=== PATIENT | male | born 1945 | race Caucasian/White ===

== ENCOUNTER → 2017-02-13 | Outpatient (CLI) | payer OTHER ==
[2017-02-13 16:58] LABS: HEMATOCRIT 40.6 % (42-52); MEAN CELL VOLUME 93.1 fL (80-100); MEAN CORPUSCULAR HGB CONC 35.5 g/dl (32-36); MEAN PLATELET VOLUME 9.9 fL (7.4-10.4); PLATELET COUNT 205 K/uL (130-400); RED BLOOD COUNT 4.36 M/uL (4.7-6.1); WHITE BLOOD COUNT 18.27 K/uL (4.8-10.8)
[2017-02-13 17:09] LABS: ALT/SGPT 25 U/L (12-78); AST/SGOT 23 U/L (15-37); BLOOD UREA NITROGEN 8 mg/dl (7-18); CALCIUM 9.5 mg/dl (8.5-10.1); CARBON DIOXIDE 31 mmol/L (21-32); CHLORIDE 105 mmol/L (98-107); GLUCOSE 99 mg/dl (70-99); POTASSIUM 3.9 mmol/L (3.5-5.1); SODIUM 141 mmol/L (136-145)
[2017-02-13 17:12] LABS: ALB/GLOB RATIO 0.9 (0.9-2); ALKALINE PHOSPHATASE 80 U/L (45-117)
[2017-02-13 17:41] LABS: EOSINOPHIL % 0.9 %; LYMPH ABS # 2.96 K/uL (1.2-3.4); LYMPHOCYTE % 16.2 %; NEUTROPHILS % 34.2 %; SMUDGE CELLS PRESENT; VARIANT LYM ABS # 8.24 K/uL; VARIANT LYMPHOCYTE % 45.1 %
[2017-02-13 18:10] LABS: COMPLETE YES
== END | disposition home or self-care (01) ==
LOC: C.LABBC 13:30
PROVIDERS: ATTEND Internal Medicine Hematology & Oncology
DX: C91.90 Lymphoid leukemia, unspecified not having achieved remission (principal)

== ENCOUNTER → 2017-08-24 | Outpatient (CLI) | payer OTHER ==
[2017-08-24 17:13] LABS: HEMATOCRIT 43.9 % (42-52); MEAN CELL VOLUME 94.4 fL (80-100); MEAN CORPUSCULAR HEMOGLOBIN 32.7 pg (25-34); MEAN CORPUSCULAR HGB CONC 34.6 g/dl (32-36); MEAN PLATELET VOLUME 10.4 fL (7.4-10.4); PLATELET COUNT 255 K/uL (130-400); RED BLOOD COUNT 4.65 M/uL (4.7-6.1)
[2017-08-24 17:22] LABS: ALT/SGPT 25 U/L (12-78); AST/SGOT 20 U/L (15-37); BLOOD UREA NITROGEN 11 mg/dl (7-18); BUN/CREATININE RATIO 13.5 (10-20); CALCIUM 9.7 mg/dl (8.5-10.1); CARBON DIOXIDE 29 mmol/L (21-32); CHLORIDE 106 mmol/L (98-107); GLUCOSE 119 mg/dl (70-99); POTASSIUM 4.1 mmol/L (3.5-5.1); SODIUM 141 mmol/L (136-145)
[2017-08-24 17:24] LABS: ALB/GLOB RATIO 0.9 (0.9-2); ALKALINE PHOSPHATASE 84 U/L (45-117); CHOLESTEROL 173 mg/dl (0-200); HDL CHOLESTEROL 58 mg/dl; LDL CHOLESTEROL CALCULATED 77 mg/dl; TRIGLYCERIDES 190 mg/dl (0-150); VERY LOW DENSITY LIPOPROT CALC 38 mg/dl
[2017-08-24 20:07] LABS: BASO % 0.3 %; BASO ABS # 0.05 K/uL (0-0.2); COMPLETE YES; EOS % 1.2 %; IG% 0.2 %; LYMPH % 65.8 %; LYMPH ABS # 11.38 K/uL (1.2-3.4); MONO % 4.2 %; NEUT % 28.3 %; SMUDGE CELLS PRESENT
[2017-08-26 16:25] LABS: ALBUMIN 4.1 G/DL (3.8-4.8); FREE KAPPA/LAMBDA RATIO 1.12 (0.26-1.65); FREE LAMBDA 14.3 MG/L (5.7-26.3); GAMMA GLOBULIN 1.2 G/DL (0.8-1.7); MONOCLONAL PROTEIN BAND 1 0.9 G/DL (NOT DETECTED); TOTAL PROTEIN 6.9 G/DL (6.2-8.3)
== END | disposition home or self-care (01) ==
LOC: C.LABBC 13:22
PROVIDERS: ATTEND Internal Medicine Hematology & Oncology
DX: C91.10 Chronic lymphocytic leukemia of B-cell type not having achieved remission (principal); D47.2 Monoclonal gammopathy; I70.0 Atherosclerosis of aorta; J44.9 Chronic obstructive pulmonary disease, unspecified

== ENCOUNTER → 2018-02-23 | Outpatient (CLI) | payer OTHER ==
[2018-02-23 13:23] LABS: HEMATOCRIT 42.8 % (42-52); HEMOGLOBIN 15.1 g/dL (14.0-18.0); MEAN CELL VOLUME 93.7 fL (80-100); MEAN CORPUSCULAR HGB CONC 35.3 g/dl (32-36); MEAN PLATELET VOLUME 9.8 fL (7.4-10.4); PLATELET COUNT 224 K/uL (130-400); RED CELL DISTRIBUTION WIDTH CV 13.5 % (11.5-14.5); WHITE BLOOD COUNT 18.52 K/uL (4.8-10.8)
[2018-02-23 14:31] LABS: BASO % 0.2 %; BASO ABS # 0.03 K/uL (0-0.2); EOS % 1.1 %; EOS ABS # 0.21 K/uL (0-0.5); IG# 0.03 K/uL (0.00-0.02); LYMPH % 60.2 %; LYMPH ABS # 11.15 K/uL (1.2-3.4); MONO % 3.6 %; MONO ABS # 0.67 K/uL (0.11-0.59); NEUT % 34.7 %; NEUT ABS # 6.43 K/uL (1.4-6.5)
[2018-02-23 17:15] LABS: ALBUMIN 3.8 gm/dl (3.4-5.0); ALT/SGPT 20 U/L (12-78); AST/SGOT 21 U/L (15-37); BLOOD UREA NITROGEN 10 mg/dl (7-18); CALCIUM 9.8 mg/dl (8.5-10.1); CARBON DIOXIDE 27 mmol/L (21-32); CREATININE 0.92 mg/dl (0.60-1.40); GLUCOSE 89 mg/dl (70-99); SODIUM 136 mmol/L (136-145)
[2018-02-23 17:17] LABS: ALKALINE PHOSPHATASE 83 U/L (45-117); TOTAL PROTEIN 7.8 gm/dl (6.4-8.2)
== END | disposition home or self-care (01) ==
LOC: C.LABBC 12:18
PROVIDERS: ATTEND Internal Medicine Hematology & Oncology
DX: C91.10 Chronic lymphocytic leukemia of B-cell type not having achieved remission (principal)

== ENCOUNTER 2022-05-22 17:11 | Observation (INO) ==
--- NOTE | 2022-05-22 17:56 | Emergency Department Note ---
Impression & Plan Pulmonary embolism, CLL (chronic lymphocytic leukemia), Chest pain, Pneumonia ED Provider Note NAME: EDOUARD HUMMEL AGE: 76 SEX: M : 1945 ARRIVES VIA: Walk-In INFORMANT: Patient ED PROVIDER(S): Cory Eisenberg DO CHIEF COMPLAINT: Pleuritic chest pain HPI: Patient is a 76-year-old gentleman with a past medical history of hypertension, CLL, COPD and prostate cancer that presents to the ER for pleuritic chest pain which started in the past 24 hours. He notes it is only present when he takes a deep breath. Located over the left chest wall. Admits to maybe a slight change in his cough over the past week. Denies any fevers. No shortness of breath. No belly pain. No nausea or vomiting. He does have some intermittent diarrhea which is unchanged. No dysuria urgency or frequency. No other exacerbating or remitting factors. ROS: See above HPI for pertinent positives & negatives. A total of 10 systems reviewed and were otherwise negative. PAST MEDICAL HISTORY:See Below PAST SURGICAL HISTORY:See Below FAMILY HISTORY:See Below SOCIAL HISTORY:See Below HOME MEDICATIONS:See Below ALLERGIES:See Below VITALS:See Below PHYSICAL EXAMINATION: GENERAL: Sitting up in bed, alert, well appearing, well nourished, no distress, non-toxic EYE EXAM: normal conjunctiva. OROPHARYNX: no exudate, no erythema, lips, buccal mucosa, and tongue normal and mucous membranes are moist NECK: supple, no nuchal rigidity, no adenopathy, non-tender LUNGS: Clear to auscultation. Normal chest wall mechanics HEART: no murmurs, S1 normal and S2 normal ABDOMEN: abdomen soft, non-tender, normo-active bowel sounds, no masses, no rebound or guarding. UPPER EXTREMITIES: upper extremities are grossly normal. LOWER EXTREMITIES: No pitting edema. NEURO EXAM: Normal sensorium, cranial nerves II-XII grossly intact, normal speech, no gross weakness of arms, no gross weakness of legs. MEDICAL DECISION MAKING: Patient is a 76-year-old male who presents ER for chest pain and shortness of breath. IV was established blood work was obtained. Labs show leukocytosis 21,000 consistent with CLL. No anemia. BMP with mild hyponatremia 134. LFTs and bilirubin were unremarkable. Troponin was negative. COVID-negative. EKG did show some nonspecific ST wave changes in the lateral leads. CT of the chest shows PE is with infectious inflammatory findings as well. PE was segmental and subsegmental. Patient was updated in regards to findings. Discussed bleeding risk factors and declined all risk factors. Patient was given heparin drip and bolus. Patient was given azithromycin and Rocephin. Discussed with the hospitalist admitted for further work-up. Triage Nursing notes reviewed. Limited review of prior medical records performed Vital Signs: reviewed and remarkable for HTN Differential diagnosis: Differential diagnoses includes but is not limited to acute coronary syndrome, myocardial infarction, pericarditis, pulmonary embolus, aortic dissection, pneumonia, pneumothorax, musculoskeletal, shingles, esophageal. ER treatment provided: See below Diagnostics interpreted by me: ECG: Sinus rhythm rate 80 Normal axis No PVCs Nonspecific ST wave changes in the lateral leads QTC [address] wave changes in the lateral leads are new in comparison to 2009 Cardiac Monitoring: An order was placed for continuous cardiac monitoring. The monitor shows a rate of 82 with sinus rhythm. Laboratory studies: As stated above and show below. Imaging studies: CT angio as described above Consultation(s): Discussed with Williams Alaniz for further evaluation Procedures: none Critical Care: I have personally spent 32 minutes of critical care time in the direct management of this patient. This includes bedside care, interpretation of diagnostic studies, and testing, discussion with consultants, patient, and family members, and other required patient management activities. This 32 minutes is in excess of all separately billable procedures. Past Med/Surg History Medical History (Updated 05/22/22 @ 22:16 by Cory Eisenberg DO) Actinic keratosis Aortic atherosclerosis Chronic obstructive pulmonary disease CLL (chronic lymphocytic leukemia) (~2007) No treatment required Coronary artery disease Hematuria, gross History of bleeding ulcers History of colon polyps Monoclonal gammopathy Pneumothorax Skin cancer Nonmelanoma;End of nose Surgical History (Updated 04/18/22 @ 08:38 by Xavier Pimentel DO) History of colonoscopy 12/2018 Repeat 5 yrs History of esophagogastroduodenoscopy (EGD) History of strabismus surgery left History of tonsillectomy History of tooth extraction most teeth Family History Sister Breast cancer Brother Prostate cancer CLL (chronic lymphocytic leukemia) Mother , 102yo Natural with unknown cause Father , 60yo Stomach cancer Brother Bone cancer Brother No problems noted. Brother No problems noted. Brother No problems noted. Sister No problems noted. Daughter No problems noted. Daughter No problems noted. Son No problems noted. 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 Beliefs That Will Affect Care: None marital status: Current Living Situation: Spouse and Family Current Living Situation Comment: lives with and 2 grandkids current occupational status: retired current occupation: Retired from [employer];Works parttime at [employer] How many Children do You have: 2 Feels Safe at Home: Yes Childhood Exposure to Second-Hand Smoke: Yes caffeine: Yes (3 cups/day) during the past year weight has: remained stable Dental Care, Regularly: Yes Physical Activity Frequency: Daily Seatbelt Use: always Sunscreen Use: Yes Assistive Devices: Denture - Upper, Denture - Lower and Glasses Allergies Allergies Allergy/AdvReac Type Severity Reaction Status Date / Time No Known Allergies Allergy Verified 05/22/22 18:02 Home Meds Previous Rx's Medication Instructions Recorded losartan 25 mg tablet 25 mg PO DAILY #90 tabs 04/18/22 Results & Data (ED) Vital Signs Vital Signs - 24 hr 05/22/22 17:21 05/22/22 18:12 05/22/22 19:12 Temperature 37.7 C H Temperature Source Oral Pulse Rate 79 65 Pulse Rhythm Regular Regular Pulse Strength Normal Respiratory Rate 18 24 Respiratory Effort / Characteristics Non-Labored Spontaneous Respiratory Depth Normal Respiratory Pattern Regular Blood Pressure 150/67 H Blood Pressure Mean 94 Blood Pressure Position Sitting Pulse Oximetry 95 97 96 Oxygen Delivery Method Room Air Room Air Room Air Sepsis Recent Fever Within 48 Hours No Sepsis New/Unexplained Change in Mental Status No Sepsis Action Taken by Nursing No Action Required Laboratory Data Result diagrams: 05/22/22 17:41 05/22/22 17:41 Lab Results 05/22/22 05/22/22 05/22/22 Range/Units 17:41 17:41 17:41 WBC 21.40 H (4.8-10.8) K/ul RBC 4.51 L (4.63-6.08) M/uL Hgb 14.7 (14.0-18.0) g/dl Hct 42.7 (40.1-51.0) % MCV 94.7 (80.0-100.0) fL MCH 32.6 (25.0-34.0) pg MCHC 34.4 (32.0-36.0) g/dL RDW Std Deviation 43.8 (36.4-46.3) fL RDW Coeff of Keyla 12.7 (11.5-14.5) % Plt Count 184 (130-400) K/uL MPV 9.9 (9.4-12.4) fL Immature Gran % (Auto) 0.4 % Neut % (Auto) 57.3 % Lymph % (Auto) 35.6 % [place] % (Auto) 5.8 % Eos % (Auto) 0.7 % Baso % (Auto) 0.2 % Neut # (Auto) 12.28 H (1.4-6.5) K/uL Lymph # (Auto) 7.61 H (1.2-3.4) K/uL [place] # (Auto) 1.25 H (0.24-0.82) K/uL Eos # (Auto) 0.14 (0-0.50) K/uL Baso # (Auto) 0.04 (0-0.2) K/uL Immature Gran # (Auto) 0.08 H (0.00-0.02) K/uL Smudge Cells Present PT 11.0 (9.0-12.0) Seconds INR 1.0 (0.9-1.1) Sodium 134 L (136-145) mmol/L Potassium 4.1 (3.5-5.1) mmol/L Chloride 103 (98-107) mmol/L Carbon Dioxide 27 (21-32) mmol/L Anion Gap 4 (3-11) BUN 10 (6-23) mg/dl Creatinine 0.92 (0.6-1.4) mg/dl Est Cr Clr Drug Dosing 68.0 ml/min Est GFR ( Amer) 92.0 ml/min Est GFR (Non-Af Amer) 79.4 ml/min BUN/Creatinine Ratio 10.9 (10-20) Glucose 117 H (70-99(Fasting)) mg/dl Calcium 9.6 (8.5-10.1) mg/dl Total Bilirubin 1.1 H (0.2-1.0) mg/dl AST 15 (13-39) U/L ALT 9 (7-52) U/L Alkaline Phosphatase 78 (34-104) U/L Troponin I High Sens 8.8 (0-20) pg/ml Total Protein 7.4 (6.0-8.3) gm/dl Albumin 4.0 (3.4-5.0) gm/dl Globulin 3.4 (2.5-4.0) gm/dl Albumin/Globulin Ratio 1.2 (0.9-2) Lipase 14 (11-82) U/L Administered Medications Heparin Sodium/Dextrose (Heparin Sodium/Dextrose) 25,000 units in 500 mls @ 26 mls/hr IV .[id number]; Protocol Stop: 06/21/22 19:44 Last Admin: 05/22/22 20:21 Dose: 1,300 units/hr, 26 mls/hr Documented By: GAMALIEL Co-signed By: AM Discontinued Medications Heparin Sodium (Porcine) (Heparin Sod (Porcine) 1000 Unit/Ml) 1 units IV NOW ONE Stop: 05/22/22 19:45 Last Admin: 05/22/22 20:21 Dose: 5,000 units Documented By: GAMALIEL Co-signed By: AM Ceftriaxone Sodium (Rocephin) 2,000 mg in 70 mls @ 140 mls/hr IV NOW STA Stop: 05/22/22 19:55 Last Infusion: 05/22/22 20:50 Dose: 0 mls/hr Documented By: Admin: 05/22/22 20:20 Dose: 140 mls/hr Documented By: GAMALIEL Azithromycin 500 mg/ Dextrose 255 mls @ 125 mls/hr IV NOW STA Stop: 05/22/22 21:28 Last Admin: 05/22/22 21:30 Dose: 125 mls/hr Documented By: GAMALIEL Ioversol (Optiray 320 125ml) 119 ml IV ONCE ONE Stop: 05/22/22 19:05 Last Admin: 05/22/22 19:04 Dose: 119 ml Documented By: [facility] Imaging Data Radiologist's Impression: Chest CTA 05/22/22 17:49 CT ANGIOGRAM OF THE CHEST CLINICAL HISTORY: Dyspnea. Left-sided chest pain. COMPARISON STUDY: Chest x-ray dated 05/22/2022. Chest CT dated 09/18/2021. TECHNIQUE: Following the IV administration of 119 cc of Optiray 320, CT angiogram of the chest was performed from the upper abdomen to the thoracic inlet utilizing the pulmonary embolus protocol. Images are reviewed in the axial, sagittal, and coronal planes. 3-D MIPS images are created and assessed. IV contrast was administered without complication. A dose lowering technique was utilized adhering to the principles of ALARA. CT DOSE: 460.29 mGy.cm FINDINGS: Thyroid: Atrophic. Thoracic aorta: There is atherosclerotic calcification of the thoracic aorta, which is normal in caliber and demonstrates standard 3-vessel arch anatomy. No dissection is seen. Pulmonary vasculature: The pulmonary trunk is normal in caliber. Segmental and subsegmental pulmonary emboli are seen within branches of the right upper and right middle lobe pulmonary arteries. There is also likely segmental pulmonary embolus within the lingular pulmonary artery. The central pulmonary vessels are clear. Heart: The heart is normal in size and without pericardial effusion. The coronary arteries are densely calcified. Lungs and pleural spaces: There is moderate emphysema. Minimal secretions are noted in the trachea. Parenchymal scarring and fibrosis with mucous plugging is noted in the right middle lobe and lingula. There is patchy groundglass con solidation within the left lower lobe seen on image #190. No pleural effusion is identified. Foci of parenchymal scarring are seen throughout both lungs. Apical scarring is noted. A formal metered pleural-based nodule at the right lung base on image #80 is unchanged. There are scattered calcified granulomas. Foci of mucus plugging are seen throughout both lungs. Mediastinum: There is no mediastinal lymphadenopathy. Evelyn: Clear. Axillae: There is no axillary lymphadenopathy. Upper abdomen: A 2.7 cm cyst is again seen in the dome of liver. A 4.5 cm cyst is again seen in the upper pole of the right kidney. Skeletal structures: The skeletal structures are osteopenic. Spondylotic change is noted throughout the thoracic spine. A large calcified posterior disc osteop hyte complex at T6-T7 contributes to moderate to severe central canal stenosis. No lytic or blastic bony lesions are seen. IMPRESSION: 1. There are segmental and subsegmental pulmonary emboli within branches of the right upper and right middle lobe pulmonary arteries. There is also likely segmental pulmonary embolus within the lingular pulmonary artery. 2. Emphysema. 3. Minimal patchy consolidation in the left lower lobe is typical for an infectious/inflammatory pneumonitis. A follow-up chest CT in 3-4 months time is recommended to document resolution. 4. Findings in the right middle lobe and lingula suggest a chronic infectious/inflammatory pneumonitis, and there are foci of mucus plugging throughout both lungs. 5. Additional findings as above. ACT 112: Positive. There are findings on this exam that require communication between the performing entity and the patient following Patient Test Result Information Act ([place] Act 112) guidelines. Electronically signed by: Luis Brandon M.D. 05/22/2022 7:21 PM Chest X-Ray 05/22/22 17:49 SINGLE VIEW CHEST CLINICAL HISTORY: Atypical chest pain. FINDINGS: 2 AP, portable, upright chest radiographs are compared to study dated 02/08/2015. Correlation is made with chest CT dated 09/18/2021. The heart is enlarged noting atherosclerotic calcification of the thoracic aorta. The pulmonary vasculature is noncongested. Emphysema and chronic interstitial t hickening is similar to previous. Foci of parenchymal scarring are seen throughout both lungs. No airspace consolidation or large pleural effusion is identified. No pneumothorax is seen. The skeletal structures are osteopenic. The bony thorax is grossly intact. IMPRESSION: Cardiomegaly and emphysema with no acute cardiopulmonary abnormality. ACT 112: Negative or not required by law. Electronically signed by: Luis Brandon M.D. 05/22/2022 6:47 PM Discharge Plan Visit Data Chief Complaint: Cardiac Assessment Stated Complaint: CHEST PAIN, SHARP PAIN ED Provider: Cory Eisenberg Discharge Problem: Pulmonary embolism, CLL (chronic lymphocytic leukemia), Chest pain, Pneumonia
[2022-05-22 17:58] LABS: Hematocrit (blood only) 42.7 % (40.1-51.0); Hemoglobin 14.7 g/dl (14.0-18.0); Mean Corpuscular Hemoglobin 32.6 pg (25.0-34.0); Mean Corpuscular Hgb Conc 34.4 g/dL (32.0-36.0); Mean Corpuscular Volume 94.7 fL (80.0-100.0); Mean Platelet Volume 9.9 fL (9.4-12.4); Platelet Count 184 K/uL (130-400); RDW Coefficient of Variation 12.7 % (11.5-14.5); RDW Standard Deviation 43.8 fL (36.4-46.3); Red Blood Count 4.51 M/uL (4.63-6.08)
[2022-05-22 18:17] LABS: Albumin Globulin Ratio 1.2 (0.9-2); BUN Creatinine Ratio 10.9 (10-20); Bilirubin,Total 1.1 mg/dl (0.2-1.0); Calcium 9.6 mg/dl (8.5-10.1); Est GFR (Non-African American) 79.4 ml/min; Globulin 3.4 gm/dl (2.5-4.0); Potassium 4.1 mmol/L (3.5-5.1); Total Protein 7.4 gm/dl (6.0-8.3)
[2022-05-22 18:23] LABS: Troponin I High Sensitivity 8.8 pg/ml (0-20)
--- NOTE | 2022-05-22 18:48 | XRay Report ---
SINGLE VIEW CHEST CLINICAL HISTORY: Atypical chest pain. FINDINGS: 2 AP, portable, upright chest radiographs are compared to study dated 02/08/2015. Correlation is made with chest CT dated 09/18/2021. The heart is enlarged noting atherosclerotic calcification o f the thoracic aorta. The pulmonary vasculature is noncongested. Emphysema and chronic interstitial t hickening is similar to previous. Foci of parenchymal scarring are seen throughout both lungs. No air space consolidation or large pleural effusion is identified. No pneumothorax is seen. The skeletal st ructures are osteopenic. The bony thorax is grossly intact. IMPRESSION: Cardiomegaly and emphysema with no acute cardiopulmonary abnormality. ACT 112: Negative or not required by law. Electronically signed by: Luis Brandon M.D. 05/22/2022 6:47 PM
[2022-05-22 18:55] LABS: Smudge Cells Present
[2022-05-22] MEDS ORDERED: OPTIRAY 320 125ml IV ONE (19:04)
[2022-05-22 19:08] LABS: Basophils # (auto) 0.04 K/uL (0-0.2); Basophils % (auto) 0.2 %; Eosinophils # (auto) 0.14 K/uL (0-0.50); Eosinophils % (auto) 0.7 %; Immature Granulocytes # (auto) 0.08 K/uL (0.00-0.02); Immature Granulocytes % (auto) 0.4 %; Lymphocytes # (auto) 7.61 K/uL (1.2-3.4); Lymphocytes % (auto) 35.6 %; Monocytes # (auto) 1.25 K/uL (0.24-0.82); Monocytes % (auto) 5.8 %; Neutrophils # (auto) 12.28 K/uL (1.4-6.5); Neutrophils % (auto) 57.3 %
--- NOTE | 2022-05-22 19:22 | CT Scan Report ---
CT ANGIOGRAM OF THE CHEST CLINICAL HISTORY: Dyspnea. Left-sided chest pain. COMPARISON STUDY: Chest x-ray dated 05/22/2022. Chest CT dated 09/18/2021. TECHNIQUE: Following the IV administration of 119 cc of Optiray 320, CT angiogram of the chest was pe rformed from the upper abdomen to the thoracic inlet utilizing the pulmonary embolus protocol. Images are reviewed in the axial, sagittal, and coronal planes. 3-D MIPS images are created and assessed. I V contrast was administered without complication. A dose lowering technique was utilized adhering to the principles of ALARA. CT DOSE: 460.29 mGy.cm FINDINGS: Thyroid: Atrophic. Thoracic aorta: There is atherosclerotic calcification of the thoracic aorta, which is normal in sharlene ibeth and demonstrates standard 3-vessel arch anatomy. No dissection is seen. Pulmonary vasculature: The pulmonary trunk is normal in caliber. Segmental and subsegmental pulmonary emboli are seen within branches of the right upper and right middle lobe pulmonary arteries. There i s also likely segmental pulmonary embolus within the lingular pulmonary artery. The central pulmonary vessels are clear. Heart: The heart is normal in size and without pericardial effusion. The coronary arteries are densel y calcified. Lungs and pleural spaces: There is moderate emphysema. Minimal secretions are noted in the trachea. P arenchymal scarring and fibrosis with mucous plugging is noted in the right middle lobe and lingula. There is patchy groundglass consolidation within the left lower lobe seen on image #190. No pleural e ffusion is identified. Foci of parenchymal scarring are seen throughout both lungs. Apical scarring i s noted. A formal metered pleural-based nodule at the right lung base on image #80 is unchanged. Ther e are scattered calcified granulomas. Foci of mucus plugging are seen throughout both lungs. Mediastinum: There is no mediastinal lymphadenopathy. Evelyn: Clear. Axillae: There is no axillary lymphadenopathy. Upper abdomen: A 2.7 cm cyst is again seen in the dome of liver. A 4.5 cm cyst is again seen in the u pper pole of the right kidney. Skeletal structures: The skeletal structures are osteopenic. Spondylotic change is noted throughout t he thoracic spine. A large calcified posterior disc osteophyte complex at T6-T7 contributes to modera te to severe central canal stenosis. No lytic or blastic bony lesions are seen. IMPRESSION: 1. There are segmental and subsegmental pulmonary emboli within branches of the right upper and right middle lobe pulmonary arteries. There is also likely segmental pulmonary embolus within the lingular pulmonary artery. 2. Emphysema. 3. Minimal patchy consolidation in the left lower lobe is typical for an infectious/inflammatory pneu monitis. A follow-up chest CT in 3-4 months time is recommended to document resolution. 4. Findings in the right middle lobe and lingula suggest a chronic infectious/inflammatory pneumoniti s, and there are foci of mucus plugging throughout both lungs. 5. Additional findings as above. ACT 112: Positive. There are findings on this exam that require communication between the performing entity and the patient following Patient Test Result Information Act ([place] Act 112) guidelines. Electronically signed by: Luis Brandon M.D. 05/22/2022 7:21 PM
[2022-05-22] MEDS ORDERED: cefTRIAXone SODIUM 2,000 MG/70 ML BAG IV STA (19:26)
[2022-05-22] MEDS ORDERED: AZITHROMYCIN 500 MG in DEXTROSE 5% 250 ML IV STA (19:26)
[2022-05-22] MEDS ORDERED: Heparin IV Adult Wt-Based Standard WITH Bolus Protocol IV STA (19:29)
[2022-05-22] MEDS ORDERED: HEPARIN SOD (PORCINE) 1000 UNIT/ML IV ONE ×2 (19:44→20:30)
--- NOTE | 2022-05-22 19:46 | History & Physical Report ---
Date of Service May 22, 2022 Assessment & Plan (1) Pulmonary embolism: Plan: CTA chest with segmental and subsegmental pulmonary emboli within branches of the right upper and right middle lobe pulmonary arteries, as well as a likely segmental pulmonary embolus within the lingular pulmonary artery. Likely provoked in context of CLL and prostate cancer. Thankfully patient is physically active. Hemodynamically stable without hypoxia - small clot burden at this time. - started on Heparin standard bolus + gtt - continue - can likely transition to DOAC in AM - per primary team - will obtain TTE - start supplemental O2 if needed to maintain SpO2 90-92% (2) Left lower lobe pneumonia: Plan: Several days of weakness, with increased cough and left-sided pleuritic chest pain x1 day. CTA showing minimal patchy consolidation in the left lower lobe which favors mild pneumonia/pneumonitis but may also be customer response representative of chronic mucus plugging in this patient with emphysema. However given leukocy tosis with neutrophilic predominance and left shift, reasonable to treat as pneumonia. - MRSA nares ordered - pending - started on CTX/Azithromycin in ED - continue with Ceftriaxone 1g IV daily and Azithromycin 500mg IV daily, for now - can likely transition to PO abx tomorrow - per primary team - graduated PRN pain regimen for pleuritic chest pain: Tylenol 650mg PO Q6H; Oxycodone 5mg PO Q6H; Dilaudid 0.25mg IV Q6H - trend CBC in AM (3) Hyponatremia: Plan: Na 134. Patient has had adequate fluid intake. Suspect very mild SIADH in context of ?PNA. Patient is asymptomatic in this regard. - trend in AM (4) Coronary artery disease: Plan: Per CTA chest today. No history of angina/chest pain or CT. - ordered lipid profile in AM - would benefit from statin on discharge - per primary team (5) Chronic obstructive pulmonary disease: Plan: Chronic, per patient. With significant smoking history. However he is unsure if he had prior PFTs and he does not use inhalers. No home O2 requirement. - CTA chest confirming emphysema - recommend PFTs on discharge and f/u with PCP regarding possible initiation of daily anti-cholinergic inhaler +/- BERNARDO PRN (6) HTN (hypertension): Plan: Continue home Losartan. (7) Tobacco use disorder: Plan: >30 pack year history. Smokes 2 cigars per day. Quit cigarettes "years ago". - encouraged cessation - recommend daily low-dose CT screening - per PCP (8) CLL (chronic lymphocytic leukemia): Plan: F/w Dr. Hairston. No treatments or history of. Increases risk for thromboembolism as stated above. (9) Prostate cancer: Plan: F/w Urology. No treatments or history of. Increases risk for thromboembolism as stated above. Plan FEN/GI: regular diet DVT Prophylaxis: Heparin gtt Code Status: full code Disposition: med/tele History of Present Illness Chief Complaint: pleuritic chest pain Primary Care Provider: Xavier Pimentel DO Ney Almonte is a 76yo male with PMHx significant for CLL (f/w Dr. Hairston annually, no h/o tx), local prostate cancer (f/w Urology, no tx as of yet), tobacco use disorder (>40 pack history, smokes 2 cigars per day currently), ?COPD, and HTN, who presented to [facility] ED on 05/22 for pleuritic left-sided chest pain. Patient reports generalized weakness/fatigue x4 days, without cough or fever/chills. Then started to have a mild cough yesterday, and started to have inspiratory pleuritic chest pain on the left side. Of note the patient does have a history of recurrent pneumonias over the last several years, which he was told is because of his CLL. He has never been hospitalized for pneumonia. Patient is not on any blood thinners. Denies h/o clotting disorder or previous clots. Denies shortness of breath. Patient is proficient with ADLs/iADLs and is physi denita active. In the ED the patient had elevated temp of 37.7C but otherwise stable on room air. Labs significant for WBC 21.4 with neutrophilic predominance and left shift. Na 134 (normal baseline). COVID-19 negative. CXR showing emphysema. CTA chest with segmental and subsegmental pulmonary emboli within branches of the right upper and right middle lobe pulmonary arteries, as well as a likely segmental pulmonary embolus within the lingular pulmonary artery. Also with minimal patchy consolidation in the left lower lobe. (incidentally also showing emphysema and dense coronary artery calcifications). Patient was started on Heparin bolus +gtt as well as CTX 2g IV + Azithromycin 500mg IV. Allergies Allergy/AdvReac Type Severity Reaction Status Date / Time No Known Allergies Allergy Verified 05/22/22 18:02 Home Medications Medication Instructions Recorded Confirmed Type losartan 25 mg tablet 25 mg PO DAILY #90 tabs 04/18/22 05/22/22 Rx apixaban 5 mg tablet (Eliquis) 5 mg PO BID #70 tabs 05/23/22 Rx azithromycin 250 mg tablet 250 mg PO DAILY 4 days #4 tabs 05/23/22 Rx cefdinir 300 mg capsule 300 mg PO BID 10 days #20 caps 05/23/22 Rx Past Med/Surg History Medical History (Updated 05/22/22 @ 22:16 by Cory Eisenberg DO) Actinic keratosis Aortic atherosclerosis Chronic obstructive pulmonary disease CLL (chronic lymphocytic leukemia) (~2007) No treatment required Coronary artery disease Hematuria, gross History of bleeding ulcers History of colon polyps Monoclonal gammopathy Pneumothorax Skin cancer Nonmelanoma;End of nose Surgical History (Updated 04/18/22 @ 08:38 by Xavier Pimentel DO) History of colonoscopy 12/2018 Repeat 5 yrs History of esophagogastroduodenoscopy (EGD) History of strabismus surgery left History of tonsillectomy History of tooth extraction most teeth Family History Sister Breast cancer Brother Prostate cancer CLL (chronic lymphocytic leukemia) Mother , 102yo Natural with unknown cause Father , 60yo Stomach cancer Brother Bone cancer Brother No problems noted. Brother No problems noted. Brother No problems noted. Sister No problems noted. Daughter No problems noted. Daughter No problems noted. Son No problems noted. Other No family history of adverse response to anesthesia Denies family history of Ovarian cancer Myocardial infarction Colorectal cancer Social History Smoking Status: Current every day smoker Tobacco Type: Cigars Cigarettes Per Day: 2 cigars a day; Second Hand Exposure: No (work environment); Hx Alcohol Use: No Hx Substance Use: No Preferred Language: French Communication Ability: Effective Visual Impairment: Limited Hearing Ability: Normal Audio Video Repairer Required: No Beliefs That Will Affect Care: None marital status: Current Living Situation: Spouse Current Living Situation Comment: lives with and 2 grandkids current occupational status: retired current occupation: Retired from [employer];Works parttime at [employer] How many Children do You have: 2 Feels Safe at Home: Yes Childhood Exposure to Second-Hand Smoke: Yes caffeine: Yes (3 cups/day) during the past year weight has: remained stable Dental Care, Regularly: Yes Physical Activity Frequency: Daily Seatbelt Use: always Sunscreen Use: Yes Assistive Devices: None Review of Systems Review of Systems: All systems reviewed & are unremarkable except as noted in HPI & below Physical Exam Physical Exam: General: A&Ox3. NAD. Cooperative. HEENT: Atraumatic, normocephalic. Pulm: Left basilar crackles. Good aeration bilaterally. Symmetrical chest rise. No increase work of breathing. No respiratory distress. Cardiac: RRR, -mrg. Radial pulses intact and symmetrical. No LE edema. Abdominal: soft, non-tender, non-distended, BS x 4 Skin: warm, dry, no rash Results & Data Results & Data ([facility]) Vital Signs (Past 12 Hours) Vital Signs Temp Pulse Resp BP Pulse Ox O2 Del Method 05/22/22 19:12 96 Room Air 05/22/22 18:12 65 24 97 Room Air 05/22/22 17:21 37.7 C H 79 18 150/67 H 95 Room Air Supervising Physician Co-Signing Physician Notes Attending addendum: I have physically seen this patient, have supervised the medical residents activities, and agree with the H&P unless as otherwise noted. Assessment and Plan: Pulmonary emboli- Segmental/subsegmental and right upper lobe and right middle lobe, with probable lingular Placed on heparin drip per protocol tonight, and transition to DOAC in a.m. Pneumonia/right middle lobe and lingula- Ceftriaxone 1 g IV daily Azithromycin 5 mg IV daily Duonebs every 4 hours while awake and every 2 hours when necessary. Remaining orders and notations as noted Resident Activity Tracking Resident Involvement: Resident Care Provided Care Provided: Adult Hospital Medicine
[2022-05-22] MEDS: HEPARIN SODIUM/DEXTROSE 25,000 UNITS/500 ML BAG IV SCH (20:21)
[2022-05-22] MEDS ORDERED: oxyCODONE HCL IR 5 MG TAB (IMMEDIATE RELEASE) PO PRN (22:00)
[2022-05-22] MEDS ORDERED: HYDROmorphone INJ 0.5 MG/0.5 ML SYR IV PRN (22:00)
[2022-05-22] MEDS ORDERED: ACETAMINOPHEN 325 MG TAB PO PRN (22:00)
[2022-05-23 03:07] LABS: Partial Thromboplastin Ratio 3.8
[2022-05-23 03:08] LABS: Partial Thromboplastin Time 104.7 Seconds (21.0-31.0)
--- NOTE | 2022-05-23 07:25 | Hospitalist Progress Note ---
Date of Service May 23, 2022 Assessment & Plan (1) Pulmonary embolism: (2) Left lower lobe pneumonia: (3) Hyponatremia: (4) Coronary artery disease: (5) Chronic obstructive pulmonary disease: (6) HTN (hypertension): (7) Tobacco use disorder: (8) CLL (chronic lymphocytic leukemia): (9) Prostate cancer: Admission and Anticipated Discharge Date Admission Date: May 22, 2022
[2022-05-23 08:32] LABS: Hematocrit (blood only) 41.9 % (40.1-51.0); Hemoglobin 14.8 g/dl (14.0-18.0); Mean Corpuscular Hemoglobin 32.7 pg (25.0-34.0); Mean Corpuscular Hgb Conc 35.3 g/dL (32.0-36.0); Mean Corpuscular Volume 92.7 fL (80.0-100.0); Platelet Count 156 K/uL (130-400); RDW Coefficient of Variation 12.9 % (11.5-14.5); RDW Standard Deviation 43.7 fL (36.4-46.3); Red Blood Count 4.52 M/uL (4.63-6.08); White Blood Count 16.62 K/ul (4.8-10.8)
[2022-05-23 08:57] LABS: Partial Thromboplastin Ratio 2.3
[2022-05-23] MEDS ORDERED: LOSARTAN POTASSIUM 25 MG TAB PO SCH (09:00)
[2022-05-23 09:01] LABS: BUN Creatinine Ratio 12.5 (10-20); Calcium 9.4 mg/dl (8.5-10.1); Chol HDL Ratio 2.9 (0-5); Creatinine Clr Calc Pharmacy 87.1 ml/min; Est GFR (African American) 103.6 ml/min; Est GFR (Non-African American) 89.3 ml/min; Magnesium 2.1 mg/dl (1.7-2.4); Potassium 3.9 mmol/L (3.5-5.1)
[2022-05-23 09:04] LABS: Partial Thromboplastin Time 63.2 Seconds (21.0-31.0)
[2022-05-23 09:55] LABS: Basophils # (auto) 0.05 K/uL (0-0.2); Basophils % (auto) 0.3 %; Eosinophils # (auto) 0.08 K/uL (0-0.50); Eosinophils % (auto) 0.5 %; Immature Granulocytes # (auto) 0.04 K/uL (0.00-0.02); Immature Granulocytes % (auto) 0.2 %; Lymphocytes # (auto) 7.46 K/uL (1.2-3.4); Lymphocytes % (auto) 44.9 %; Monocytes # (auto) 1.09 K/uL (0.24-0.82); Monocytes % (auto) 6.6 %; Neutrophils % (auto) 47.5 %; Smudge Cells Present
--- NOTE | 2022-05-23 10:24 | XCELERA ---
[id number]
--- NOTE | 2022-05-23 11:11 | Electrocardiogram Report ---
Test Reason : Blood Pressure : / mmHG Vent. Rate : 080 BPM Atrial Rate : 080 BPM P-R Int : 202 ms QRS Dur : 100 ms QT Int : 388 ms P-R-T Axes : 083 061 084 degrees QTc Int : 447 ms Normal sinus rhythm Possible Left atrial enlargement Incomplete right bundle branch block Nonspecific T wave abnormality Abnormal ECG When compared with ECG of 20-JAN-2010 06:10, T wave inversion now evident in Lateral leads Confirmed by Wayne Mack ([id number]) on 05/23/2022 11:11:14 AM Referred By: REFERRED SELF Confirmed By:Wayne Mack
--- NOTE | 2022-05-23 15:43 | Discharge Summary ---
Date of Service May 23, 2022 Admission HPI Per Admitting Provider Ney Almonte is a 76yo male with PMHx significant for CLL (f/w Dr. Hairston annually, no h/o tx), local prostate cancer (f/w Urology, no tx as of yet), tobacco use disorder (>40 pack history, smokes 2 cigars per day currently), ?COPD, and HTN, who presented to [facility] ED on 05/22 for pleuritic left-sided chest pain. Patient reports generalized weakness/fatigue x4 days, without cough or fever/chills. Then started to have a mild cough yesterday, and started to have inspiratory pleuritic chest pain on the left side. Of note the patient does have a history of recurrent pneumonias over the last several years, which he was told is because of his CLL. He has never been hospitalized for pneumonia. Patient is not on any blood thinners. Denies h/o clotting disorder or previous clots. Denies shortness of breath. Patient is proficient with ADLs/iADLs and is physically active. In the ED the patient had elevated temp of 37.7C but otherwise stable on room air. Labs significant for WBC 21.4 with neutrophilic predominance and left shift. Na 134 (normal baseline). COVID-19 negative. CXR showing emphysema. CTA chest with segmental and subsegmental pulmonary emboli within branches of the right upper and right middle lobe pulmonary arteries, as well as a likely segmental pulmonary embolus within the lingular pulmonary artery. Also with minimal patchy consolidation in the left lower lobe. (incidentally also showing emphysema and dense coronary artery calcifications). Patient was started on Heparin bolus +gtt as well as CTX 2g IV + Azithromycin 500mg IV. Admission Exam Per Admitting Provider General: A&Ox3. NAD. Cooperative. HEENT: Atraumatic, normocephalic. Pulm: Left basilar crackles. Good aeration bilaterally. Symmetrical chest rise. No increase work of breathing. No respiratory distress. Cardiac: RRR, -mrg. Radial pulses intact and symmetrical. No LE edema. Abdominal: soft, non-tender, non-distended, BS x 4 Skin: warm, dry, no rash Principal Diagnosis Pneumonia/PE Discharge Exam General: A&Ox3. NAD. Cooperative. HEENT: Atraumatic, normocephalic. Pulm: Left basilar crackles. Good aeration bilaterally. Symmetrical chest rise. No increase work of breathing. No respiratory distress. Cardiac: RRR, -mrg. Radial pulses intact and symmetrical. No LE edema. Abdominal: soft, non-tender, non-distended Skin: warm, dry, no rash Discharge Data Allergies Allergy/AdvReac Type Severity Reaction Status Date / Time No Known Allergies Allergy Verified 05/22/22 18:02 Consultations 05/22/22 19:29 ED Decision to Admit Stat Ordered Studies 05/23/22 05/23/22 05/23/22 Range/Units 08:14 08:14 08:14 WBC 16.62 H (4.8-10.8) K/ul RBC 4.52 L (4.63-6.08) M/uL Hgb 14.8 (14.0-18.0) g/dl Hct 41.9 (40.1-51.0) % MCV 92.7 (80.0-100.0) fL MCH 32.7 (25.0-34.0) pg MCHC 35.3 (32.0-36.0) g/dL RDW Std Deviation 43.7 (36.4-46.3) fL RDW Coeff of Keyla 12.9 (11.5-14.5) % Plt Count 156 (130-400) K/uL MPV 10.0 (9.4-12.4) fL Immature Gran % (Auto) 0.2 % Neut % (Auto) 47.5 % Lymph % (Auto) 44.9 % Cedar % (Auto) 6.6 % Eos % (Auto) 0.5 % Baso % (Auto) 0.3 % Neut # (Auto) 7.90 H (1.4-6.5) K/uL Lymph # (Auto) 7.46 H (1.2-3.4) K/uL Cedar # (Auto) 1.09 H (0.24-0.82) K/uL Eos # (Auto) 0.08 (0-0.50) K/uL Baso # (Auto) 0.05 (0-0.2) K/uL Immature Gran # (Auto) 0.04 H (0.00-0.02) K/uL Smudge Cells Present PT (9.0-12.0) Seconds INR (0.9-1.1) APTT 63.2 H* (21.0-31.0) Seconds PTT Ratio 2.3 Sodium 136 (136-145) mmol/L Potassium 3.9 (3.5-5.1) mmol/L Chloride 105 (98-107) mmol/L Carbon Dioxide 26 (21-32) mmol/L Anion Gap 5 (3-11) BUN 9 (6-23) mg/dl Creatinine 0.72 (0.6-1.4) mg/dl Est Cr Clr Drug Dosing 87.1 ml/min Est GFR ( Amer) 103.6 ml/min Est GFR (Non-Af Amer) 89.3 ml/min BUN/Creatinine Ratio 12.5 (10-20) Glucose 99 (70-99(Fasting)) mg/dl Calcium 9.4 (8.5-10.1) mg/dl Magnesium 2.1 (1.7-2.4) mg/dl Total Bilirubin (0.2-1.0) mg/dl AST (13-39) U/L ALT (7-52) U/L Alkaline Phosphatase (34-104) U/L Troponin I High Sens (0-20) pg/ml Total Protein (6.0-8.3) gm/dl Albumin (3.4-5.0) gm/dl Globulin (2.5-4.0) gm/dl Albumin/Globulin Ratio (0.9-2) Triglycerides 63 (0-150) mg/dl Cholesterol 129 (0-200) mg/dl LDL Cholesterol, Calc 71 mg/dl VLDL Cholesterol, Calc 13 (0-30) mg/dl HDL Cholesterol 45 mg/dl Cholesterol/HDL Ratio 2.9 (0-5) Lipase (11-82) U/L Nasal Screen MRSA (PCR) (Negative) SARS-CoV-2, RNA, NAAT (NEGATIVE) 05/23/22 05/22/22 05/22/22 Range/Units 02:30 Unknown 22:30 WBC (4.8-10.8) K/ul RBC (4.63-6.08) M/uL Hgb (14.0-18.0) g/dl Hct (40.1-51.0) % MCV (80.0-100.0) fL MCH (25.0-34.0) pg MCHC (32.0-36.0) g/dL RDW Std Deviation (36.4-46.3) fL RDW Coeff of Keyla (11.5-14.5) % Plt Count (130-400) K/uL MPV (9.4-12.4) fL Immature Gran % (Auto) % Neut % (Auto) % Lymph % (Auto) % Cedar % (Auto) % Eos % (Auto) % Baso % (Auto) % Neut # (Auto) (1.4-6.5) K/uL Lymph # (Auto) (1.2-3.4) K/uL Cedar # (Auto) (0.24-0.82) K/uL Eos # (Auto) (0-0.50) K/uL Baso # (Auto) (0-0.2) K/uL Immature Gran # (Auto) (0.00-0.02) K/uL Smudge Cells PT (9.0-12.0) Seconds INR (0.9-1.1) APTT 104.7 H* (21.0-31.0) Seconds PTT Ratio 3.8 Sodium (136-145) mmol/L Potassium (3.5-5.1) mmol/L Chloride (98-107) mmol/L Carbon Dioxide (21-32) mmol/L Anion Gap (3-11) BUN (6-23) mg/dl Creatinine (0.6-1.4) mg/dl Est Cr Clr Drug Dosing ml/min Est GFR ( Amer) ml/min Est GFR (Non-Af Amer) ml/min BUN/Creatinine Ratio (10-20) Glucose (70-99(Fasting)) mg/dl Calcium (8.5-10.1) mg/dl Magnesium (1.7-2.4) mg/dl Total Bilirubin (0.2-1.0) mg/dl AST (13-39) U/L ALT (7-52) U/L Alkaline Phosphatase (34-104) U/L Troponin I High Sens (0-20) pg/ml Total Protein (6.0-8.3) gm/dl Albumin (3.4-5.0) gm/dl Globulin (2.5-4.0) gm/dl Albumin/Globulin Ratio (0.9-2) Triglycerides (0-150) mg/dl Cholesterol (0-200) mg/dl LDL Cholesterol, Calc mg/dl VLDL Cholesterol, Calc (0-30) mg/dl HDL Cholesterol mg/dl Cholesterol/HDL Ratio (0-5) Lipase (11-82) U/L Nasal Screen MRSA (PCR) Negative (Negative) SARS-CoV-2, RNA, NAAT NEGATIVE (NEGATIVE) 05/22/22 05/22/22 05/22/22 Range/Units 17:41 17:41 17:41 WBC 21.40 H (4.8-10.8) K/ul RBC 4.51 L (4.63-6.08) M/uL Hgb 14.7 (14.0-18.0) g/dl Hct 42.7 (40.1-51.0) % MCV 94.7 (80.0-100.0) fL MCH 32.6 (25.0-34.0) pg MCHC 34.4 (32.0-36.0) g/dL RDW Std Deviation 43.8 (36.4-46.3) fL RDW Coeff of Keyla 12.7 (11.5-14.5) % Plt Count 184 (130-400) K/uL MPV 9.9 (9.4-12.4) fL Immature Gran % (Auto) 0.4 % Neut % (Auto) 57.3 % Lymph % (Auto) 35.6 % Cedar % (Auto) 5.8 % Eos % (Auto) 0.7 % Baso % (Auto) 0.2 % Neut # (Auto) 12.28 H (1.4-6.5) K/uL Lymph # (Auto) 7.61 H (1.2-3.4) K/uL Cedar # (Auto) 1.25 H (0.24-0.82) K/uL Eos # (Auto) 0.14 (0-0.50) K/uL Baso # (Auto) 0.04 (0-0.2) K/uL Immature Gran # (Auto) 0.08 H (0.00-0.02) K/uL Smudge Cells Present PT 11.0 (9.0-12.0) Seconds INR 1.0 (0.9-1.1) APTT (21.0-31.0) Seconds PTT Ratio Sodium 134 L (136-145) mmol/L Potassium 4.1 (3.5-5.1) mmol/L Chloride 103 (98-107) mmol/L Carbon Dioxide 27 (21-32) mmol/L Anion Gap 4 (3-11) BUN 10 (6-23) mg/dl Creatinine 0.92 (0.6-1.4) mg/dl Est Cr Clr Drug Dosing 68.0 ml/min Est GFR ( Amer) 92.0 ml/min Est GFR (Non-Af Amer) 79.4 ml/min BUN/Creatinine Ratio 10.9 (10-20) Glucose 117 H (70-99(Fasting)) mg/dl Calcium 9.6 (8.5-10.1) mg/dl Magnesium (1.7-2.4) mg/dl Total Bilirubin 1.1 H (0.2-1.0) mg/dl AST 15 (13-39) U/L ALT 9 (7-52) U/L Alkaline Phosphatase 78 (34-104) U/L Troponin I High Sens 8.8 (0-20) pg/ml Total Protein 7.4 (6.0-8.3) gm/dl Albumin 4.0 (3.4-5.0) gm/dl Globulin 3.4 (2.5-4.0) gm/dl Albumin/Globulin Ratio 1.2 (0.9-2) Triglycerides (0-150) mg/dl Cholesterol (0-200) mg/dl LDL Cholesterol, Calc mg/dl VLDL Cholesterol, Calc (0-30) mg/dl HDL Cholesterol mg/dl Cholesterol/HDL Ratio (0-5) Lipase 14 (11-82) U/L Nasal Screen MRSA (PCR) (Negative) SARS-CoV-2, RNA, NAAT (NEGATIVE) Chest CTA 05/22/22 17:49 CT ANGIOGRAM OF THE CHEST CLINICAL HISTORY: Dyspnea. Left-sided chest pain. COMPARISON STUDY: Chest x-ray dated 05/22/2022. Chest CT dated 09/18/2021. TECHNIQUE: Following the IV administration of 119 cc of Optiray 320, CT angiogram of the chest was performed from the upper abdomen to the thoracic inlet utilizing the pulmonary embolus protocol. Images are reviewed in the axial, sagittal, and coronal planes. 3-D MIPS images are created and assessed. IV contrast was administered without complication. A dose lowering technique was utilized adhering to the principles of ALARA. CT DOSE: 460.29 mGy.cm FINDINGS: Thyroid: Atrophic. Thoracic aorta: There is atherosclerotic calcification of the thoracic aorta, which is normal in caliber and demonstrates standard 3-vessel arch anatomy. No dissection is seen. Pulmonary vasculature: The pulmonary trunk is normal in caliber. Segmental and subsegmental pulmonary emboli are seen within branches of the right upper and right middle lobe pulmonary arteries. There is also likely segmental pulmonary embolus within the lingular pulmonary artery. The central pulmonary vessels are clear. Heart: The heart is normal in size and without pericardial effusion. The coronary arteries are densely calcified. Lungs and pleural spaces: There is moderate emphysema. Minimal secretions are noted in the trachea. Parenchymal scarring and fibrosis with mucous plugging is noted in the right middle lobe and lingula. There is patchy groundglass consolidation within the left lower lobe seen on image #190. No pleural effusion is identified. Foci of parenchymal scarring are seen throughout both lungs. Api sophy scarring is noted. A formal metered pleural-based nodule at the right lung base on image #80 is unchanged. There are scattered calcified granulomas. Foci of mucus plugging are seen throughout both lungs. Mediastinum: There is no mediastinal lymphadenopathy. Evelyn: Clear. Axillae: There is no axillary lymphadenopathy. Upper abdomen: A 2.7 cm cyst is again seen in the dome of liver. A 4.5 cm cyst is again seen in the upper pole of the right kidney. Skeletal structures: The skeletal structures are osteopenic. Spondylotic change is noted throughout the thoracic spine. A large calcified posterior disc osteophyte complex at T6-T7 contributes to moderate to severe central canal stenosis. No lytic or blastic bony lesions are seen. IMPRESSION: 1. There are segmental and subsegmental pulmonary emboli within branches of the right upper and right middle lobe pulmonary arteries. There is also likely segmental pulmonary embolus within the lingular pulmonary artery 2. Emphysema. 3. Minimal patchy consolidation in the left lower lobe is typical for an infectious/inflammatory pneumonitis. A follow-up chest CT in 3-4 months time is recommended to document resolution. 4. Findings in the right middle lobe and lingula suggest a chronic infectious/inflammatory pneumonitis, and there are foci of mucus plugging throughout both lungs. 5. Additional findings as above. Chest X-Ray 05/22/22 17:49 SINGLE VIEW CHEST CLINICAL HISTORY: Atypical chest pain. FINDINGS: 2 AP, portable, upright chest radiographs are compared to study dated 02/08/2015. Correlation is made with chest CT dated 09/18/2021. The heart is enlarged noting atherosclerotic calcification of the thoracic aorta. The pulmonary vasculature is noncongested. Emphysema and chronic interstitial thicke juan is similar to previous. Foci of parenchymal scarring are seen throughout both lungs. No airspace consolidation or large pleural effusion is identified. No pneumothorax is seen. The skeletal structures are osteopenic. The bony thorax is grossly intact. IMPRESSION: Cardiomegaly and emphysema with no acute cardiopulmonary abnormality ECHO 05/22/22 Left ventricular systolic function is normal No regional wall motion abnormalities noted There is mild concentric left ventricular hypertrophy EJ 60-65% There is mild mitral regurgitation No prior study for comparison Hospital Course (1) Pulmonary embolism: (2) Left lower lobe pneumonia: (3) Hyponatremia: (4) Coronary artery disease: (5) Chronic obstructive pulmonary disease: (6) HTN (hypertension): (7) Tobacco use disorder: (8) CLL (chronic lymphocytic leukemia): (9) Prostate cancer: Plan Mr. Almonte is a 76 y/o male with PMHx significant for CLL (f/w Dr. Hairston annually, no h/o tx), local prostate cancer (f/w Urology, no tx as of yet), tobacco use disorder (>40 pack history, smokes 2 cigars per day currently), ?COPD, and HTN, who presented to [facility] ED on 05/22 for pleuritic left-sided chest pain was found to have left lower lobe pneumonia and right sided PE now clinically improving and ready for discharge. Per CMS guidelines, a determination that the admission or continues stay is not medically necessary as agreed by a member of the UR committee and the attending provider. Therefore, a MEDICARE Code 44 will be completed and the inpatient admission will be changed to outpatient. #PE CTA chest with segmental and subsegmental pulmonary emboli within branches of the right upper and right middle lobe pulmonary arteries, as well as a likely segmental pulmonary embolus within the lingular pulmonary artery. Likely provoked in context of CLL and prostate cancer. Thankfully patient is physically active. Hemodynamically stable without hypoxia - small clot burden at this time. Patient on Heparin bolus + gtt during inpatient stay. ECHO - EF 60-65%, mild LVH, mild mitral regurgitation, no wall motion abnormalities. Discharge on Eliquis 10 mg BID for 7 days then 5 mg BID. Follow up with PCP. #PNA - left lower lobe Several days of weakness, with increased cough and left-sided pleuritic chest pain x1 day. CTA showing minimal patchy consolidation in the left lower lobe which favors mild pneumonia/pneumonitis but may also be call center representative of chronic mucus plugging in this patient with emphysema. However given le ukocytosis (21 --> 16) with neutrophilic predominance and left shift, reasonable to treat as pneumonia. MRSA nares neg. CTX/Azithromycin in ED. Discharge on Azithromycin 250 mg 4 days and Cefdinir 300 mg BID for 10 days. #Hyponatremia - resolved Na 134 - 136 at time of discharge. Patient has had adequate fluid intake. Patient is asymptomatic in this regard. #CAD Per CTA chest today. No history of angina/chest pain or TX. Lipids WNL - TRG 63, Chol 129, LDL 71, VLDL 13, HDL 45. Consider starting a statin outpatient. #COPD Chronic, per patient. With significant smoking history. However he is unsure if he had prior PFTs and he does not use inhalers. No home O2 requirement. F/u with PCP for PFTs/spirometry and possible initiation of maintenance anti-cholinergic inhaler. #HTN Continue home Losartan. #Tobacco use disorder >30 pack year history. Smokes 2 cigars per day. Quit cigarettes "years ago". Encourage smoking cessation. Recommended low-dose CT screening. #CLL F/w Dr. Hairston. No treatments or history of. Increases risk for thromboembolism as stated above. #Prostate CA F/w Urology. No treatments or history of. Increases risk for thromboembolism as stated above. FEN/GI: regular diet DVT Prophylaxis: Heparin gtt Code Status: full code Disposition: home Total Time Total Time Spent Total Time Spent (In Minutes): >30 Discharge Plan Discharge Items Patient Disposition: Home - Self-Care Reason For Visit: PE, PNEUMONIA Discharge Diagnosis: PE, Pneumonia Activity: Per Instructions section Non-emergency contact: Primary Care Provider and Oncologist Call non-emergency contact if: you have any medication questions and your symptoms worsen Follow-up/Referrals: Xavier Pimentel DO [Primary Care Provider] - 06/02/22 11:30 am Diet: Regular Addtl Attending Provider Instructions: You were seen in the hospital for chest pain and were found to have pneumonia and PE (blood clots in the lung). We started you on antibiotics and a blood thinner. Take these medications as directed and complete the entire course of antibiotics. Eliquis 10 mg twice a day for 7 days. Then 5 mg twice a day. Follow up with PCP within the next week. Being on a blood thinner increases your risk of bleeding. If you notice any obvious bleeding such as blood in the stool or vomit, seek medical care immediately. You bleed a little more than usual with things like cuts or nose bleeds - hold continuous pressure on the site for 10 minutes before revaluating. It was great being a part of your care team! Pending Studies at Discharge: No Stand-Alone Forms: My [facility], Smoking Cessation Medications and DC Order Prescriptions: New cefdinir 300 mg capsule 300 mg PO BID 10 Days Qty: 20 0RF azithromycin 250 mg tablet 250 mg PO DAILY 4 Days Qty: 4 0RF Rx Instructions: start on day 2 of therapy Eliquis 5 mg tablet 5 mg PO BID Qty: 70 0RF Rx Instructions: Take 10 mg (2 tabs) twice a day for 7 days, then 5 mg (1 tab) twice a day Continued losartan 25 mg tablet 25 mg PO DAILY Qty: 90 3RF Discharge Orders: Discharge Order (Routine); Ordered 05/23/22 Ordered By: Genoveva Fox/Other Patient Handouts: Pulmonary Embolism Admission Data Admit Date/Time: 05/22/22 20:42 Attending Provider: Cory Patricio Admit Provider: Max Hernández Primary Care Provider: Xavier Pimentel Other Providers: Williams Alaniz Other Interventions: Discharge Summary Assessment (RN) Last Done: 05/23/22 16:15 Supervising Physician Co-Signing Physician Notes I personally examined the patient and verified all nobles points of history and exam, discussed case, and agree with decision making with Dr Lin. Feeling better. Pleuritic pain better. No shortness of breath. Would like to go home. Extensive discussiondiscussed pneumonia and treatment, and then extensively discussed PE and treatment/ongoing treatment. Vitals noted, in general he is awake alert pleasant no distress. HEENT normocephalic atraumatic mucous membranes moist. Breathing unlabored no accessory muscle use good effort. Skin shows no rashes no pallor or icterus. Neuro without focal deficits. Community-acquired pneumoniait seems like the pleuritic pain from this is what brought him to the hospital. Fortunately he appears safe/stable for homefinish antibiotics with Zithromax and cefdinir. Of note the question of whether or not this was a pneumonia or pulmonary infarct was consideredbut given that the area in question for infiltrate was anatomically quite separate from the bulk of his pulmonary emboliI truly do think he had a pneumonia and PEs. Probably the pneumonia is what got his attention the PEs were an incidental finding. Pulmonary embolivery stable. CLL probably being the main risk. Discussed extensively, started Eliquis. Probably does require open ended treatment, although after maybe 3 months we could consider reducing from 5 twice daily to 5 mg daily. Stable for home. Per CMS guidelines, a determination that the admission or continues stay is not medically necessary as agreed by a member of the UR committee and the attending provider. Therefore, a MEDICARE Code 44 will be completed and the inpatient admission will be changed to outpatient. Resident Activity Tracking Resident Involvement: Resident Care Provided Care Provided: Adult Hospital Medicine
[2022-05-23] MEDS: HEPARIN SODIUM/DEXTROSE 25,000 UNITS/500 ML BAG IV SCH (18:21)
--- NOTE | 2022-05-23 18:26 | Billing Data ---
Date of Service May 23, 2022 Coding Level of Care Code 73040 OBS Care - Discharge
[2022-05-23] MEDS ORDERED: cefTRIAXone SODIUM 1,000 MG in DEXTROSE 5% 50 ML IV SCH (20:00)
[2022-05-23] MEDS ORDERED: AZITHROMYCIN 500 MG in DEXTROSE 5% 250 ML IV SCH (21:00)
--- NOTE | 2022-05-23 23:47 | Billing Data ---
Date of Service May 23, 2022 Coding Level of Care Code INT OBSERVATION CARE 70M LVL 3
== END 2022-05-23 18:26 | disposition home or self-care (01) ==
LOC: ED 17:11 → SUATTDRO 20:42 → INTOOBSV 20:42 → 2N 20:42

== ENCOUNTER 2023-05-07 16:14 | Inpatient (IN) ==
--- NOTE | 2023-05-07 17:23 | XRay Report ---
XR chest 1V portable HISTORY: Chest pain, nonspecific COMPARISON: Chest CT 04/28/2023. FINDINGS: No pneumothorax. No pleural effusions. The heart is normal in size. Emphysema again noted. No evidence for pulmonary edema. Calcifications within the aortic knob. Patchy airspace opacities wit hin the right midlung zone and left upper lobe. This has slightly progressed. Mild interstitial thick ening again noted. IMPRESSION: 1. Slight progression of the patchy airspace opacities within the right midlung zone and left upper l obe. This likely represents a pneumonia. 2. Emphysema. ACT 112: Negative or not required by law. Electronically signed by: Leobardo Smith M.D. 05/07/2023 5:21 PM
[2023-05-07 17:25] LABS: Hematocrit (blood only) 40.6 % (42.0-52.0); Mean Corpuscular Hemoglobin 32.8 pg (25.0-34.0); Mean Corpuscular Hgb Conc 34.5 g/dL (32.0-36.0); Mean Corpuscular Volume 95.1 fL (80.0-100.0); Mean Platelet Volume 10.3 fL (9.4-12.4); Platelet Count 175 K/uL (130-400); RDW Coefficient of Variation 13.2 % (11.5-14.5); RDW Standard Deviation 45.3 fL (36.4-46.3); Red Blood Count 4.27 M/uL (4.70-6.10); White Blood Count 22.04 K/ul (4.8-10.8)
--- NOTE | 2023-05-07 17:26 | Emergency Department Note ---
Impression & Plan Precordial chest pain, Leukocytosis, Pulmonary emboli, Failure of outpatient treatment, Elevated troponin ED Provider Note NAME: EDOUARD HUMMEL AGE: 77 SEX: M : 1945 ARRIVES VIA: Walk-In INFORMANT: [Patient][family] ED PROVIDER(S): [Luis Rangel MD] CHIEF COMPLAINT: Chest pain HISTORY OF PRESENT ILLNESS: The patient is a 77-year-old male who presents to the ED with left pleuritic chest pain. The pain has been present for about 24 hours. No shortness of breath, cough, fever. 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 He has had pneumonia in the past and has felt similar to how he feels today. Patient denies trauma. There has been no vomiting or diarrhea. PMHx/PSHx: See Below SOCIAL HISTORY: See Below. PHYSICAL EXAM: GENERAL: Patient is in no acute distress. HEENT: No acute trauma, normocephalic atraumatic, mucous membranes moist, no nasal congestion. NECK: No stridor, no adenopathy, no meningismus, trachea is midline. LUNGS: Diminished breath sounds bilaterally, no wheezing or rhonchi. Chest: Tender to the left chest in the area of the left breast. HEART: Without murmurs gallops or rubs, regular rate and rhythm. ABDOMEN: Soft, nontender, bowel sounds positive, no peritonitis. EXTREMITIES: No cyanosis or edema, full range of motion of all the joints without pain or difficulty, no signs for acute trauma. NEUROLOGIC: Oriented x 3, no acute motor or sensory deficits, no focal weakness. SKIN: No rash, no jaundice, no diaphoresis. DIFFERENTIAL DIAGNOSIS: Pneumonia, DVT, PE, cardiac ischemia, pneumothorax, bronchitis, musculoskeletal pain, among others. EMERGENCY DEPARTMENT COURSE/PROCEDURES: Prior/Outside records reviewed: None. ECG per my interpretation: Indication was chest pain. The ECG shows a sinus rhythm with a first-degree AV block. The rate is 77. There is some baseline artifact. There is no ST elevation, no PVCs. The QTc is 452. Continuous Cardiac Monitoring per my interpretation: An order was placed for continuous cardiac monitoring. The monitor shows a rate of 83 with sinus rhythm with a first-degree AV block. Critical Care Note: I have personally spent 52 minutes of critical care time in the direct management of this patient. This includes bedside care, interpretation of diagnostic studies, and testing, discussion with consultants, patient, and family members, and other required patient management activities. This 52 minutes is in excess of all separately billable procedures. MEDICAL DECISION MAKING: There is a significant leukocytosis however, the patient has CLL and the white count elevation may be secondary to this diagnosis alone, infection certainly was considered. There was a normal hemoglobin and platelet count. D-dimer was not elevated making PE less likely. There was no concerning coagulopathy by our testing. There was no renal failure or significant electrolyte abnormality. Lactic acid level was not elevated making severe sepsis less likely. ECG showed a sinus rhythm, no obvious ischemia. Cardiac enzyme testing x1 was slightly elevated. This troponin elevation could be secondary to cardiac injury or potentially just mismatch. Pancreatic testing here did not show findings of pancreatitis. COVID test returned negative. Chest film per my review showed some patchy consolidation, possibly chronic versus acute-the patient does have a history of COPD. Chest CT does show pulmonary infarcts and pulmonary emboli. A pneumonia was thought potentially possible as well but less likely. With the patient's findings, I did initiate IV heparin. He was given an IV heparin bolus and then placed on a heparin drip. Patient presents with pleuritic chest pain. He was found to have pulmonary emboli despite his daily Eliquis use. He requires hospitalization. The potential for a secondary pneumonia was also discussed with the family. I did give IV ceftriaxone and IV Zithromax. I did talk with case management, the on-call hospitalist was consulted. DISPOSITION: Patient's presentation and findings warrant a hospital stay. Past Med/Surg History Medical History Actinic keratosis Aortic atherosclerosis Chronic obstructive pulmonary disease CLL (chronic lymphocytic leukemia) (~2007) No treatment required Coronary artery disease Hematuria, gross History of bleeding ulcers History of colon polyps Monoclonal gammopathy Pneumothorax Skin cancer Nonmelanoma;End of nose Surgical History History of colonoscopy History of esophagogastroduodenoscopy (EGD) History of strabismus surgery History of tonsillectomy History of tooth extraction Family History Sister Breast cancer Brother Prostate cancer CLL (chronic lymphocytic leukemia) Mother , 102yo Natural with unknown cause Father , 60yo Stomach cancer Brother Bone cancer Brother No problems noted. Brother No problems noted. Brother No problems noted. Sister No problems noted. Daughter No problems noted. Daughter No problems noted. Son No problems noted. Other No family history of adverse response to anesthesia Denies family history of Ovarian cancer Myocardial infarction Colorectal cancer Social History Smoking Status: Current every day smoker Tobacco Type: Cigars Cigarettes Per Day: 2 cigars a day; Second Hand Exposure: No; Do You Dip or Chew Tobacco: No; Hx Alcohol Use: No Hx Substance Use: No Preferred Language: Martiniquais Communication Ability: Effective Visual Impairment: Limited Hearing Ability: Normal Civil Cadd Technician Required: No Beliefs That Will Affect Care: None marital status: Current Living Situation: Spouse Current Living Situation Comment: Lives at home with current occupational status: retired current occupation: Retired from [employer];Works parttime at [employer] How many Children do You have: 2 Other Information That Helps Us Care for You: No Feels Safe at Home: Yes Safety Concerns: Feels Safe At This Time Childhood Exposure to Second-Hand Smoke: Yes Diet: regular caffeine: Yes (3 cups/day) during the past year weight has: remained stable Dental Care, Regularly: Yes Physical Activity Frequency: Daily Physical Activity Frequency Comment: active lifestyle Seatbelt Use: always Sunscreen Use: Yes Do you think of yourself as: straight/heterosexual Assistive Devices: None Allergies Allergies Allergy/AdvReac Type Severity Reaction Status Date / Time No Known Drug Allergies Allergy Verified 04/21/23 08:52 Home Meds Home Medications Medication Instructions Recorded Confirmed Metamucil 0 mg PO DAILY 05/07/23 05/07/23 Previous Rx's Medication Instructions Recorded losartan 25 mg tablet 25 mg PO DAILY #90 tabs 04/18/22 apixaban 5 mg tablet (Eliquis) 5 mg PO BID #60 tabs 02/24/23 Results & Data (ED) Vital Signs Vital Signs - 24 hr 05/07/23 16:17 05/07/23 16:27 05/07/23 16:27 Temperature 36.9 C Temperature Source Temporal Artery Scan Pulse Rate 86 Pulse Rate [Finger] Pulse Rate from SpO2 Sensor Pulse Rhythm Respiratory Rate 18 Respiratory Effort / Characteristics Non-Labored Non-Labored Respiratory Depth Normal Normal Respiratory Pattern Regular Blood Pressure 123/72 Blood Pressure [Right Arm] Blood Pressure Mean 89 Blood Pressure Mean [Right Arm] Pulse Oximetry 94 Oxygen Delivery Method Room Air Room Air Room Air Sepsis Recent Fever Within 48 Hours No Sepsis New/Unexplained Change in Mental Status N/A Sepsis Action Taken by Nursing No Action Required 05/07/23 16:42 05/07/23 17:04 05/07/23 16:42 Temperature Temperature Source Pulse Rate 79 83 77 Pulse Rate [Finger] Pulse Rate from SpO2 Sensor 78 Pulse Rhythm Regular Respiratory Rate 26 H 23 Respiratory Effort / Characteristics Respiratory Depth Respiratory Pattern Blood Pressure Blood Pressure [Right Arm] Blood Pressure Mean Blood Pressure Mean [Right Arm] Pulse Oximetry 98 97 Oxygen Delivery Method Room Air Sepsis Recent Fever Within 48 Hours Sepsis New/Unexplained Change in Mental Status Sepsis Action Taken by Nursing 05/07/23 17:00 05/07/23 20:14 05/07/23 17:30 Temperature Temperature Source Pulse Rate 81 79 Pulse Rate [Finger] 92 H Pulse Rate from SpO2 Sensor 81 79 Pulse Rhythm Respiratory Rate 24 18 23 Respiratory Effort / Characteristics Non-Labored Accessory Muscle Use Respiratory Depth Normal Respiratory Pattern Blood Pressure 139/85 Blood Pressure [Right Arm] 172/85 H Blood Pressure Mean 103 Blood Pressure Mean [Right Arm] 114 Pulse Oximetry 97 94 96 Oxygen Delivery Method Room Air Sepsis Recent Fever Within 48 Hours Sepsis New/Unexplained Change in Mental Status Sepsis Action Taken by Nursing 05/07/23 18:00 05/07/23 18:33 05/07/23 19:00 Temperature Temperature Source Pulse Rate 84 85 Pulse Rate [Finger] Pulse Rate from SpO2 Sensor 84 87 Pulse Rhythm Respiratory Rate 25 H 26 H Respiratory Effort / Characteristics Respiratory Depth Respiratory Pattern Blood Pressure 159/82 H Blood Pressure [Right Arm] Blood Pressure Mean 107 Blood Pressure Mean [Right Arm] Pulse Oximetry 96 96 Oxygen Delivery Method Sepsis Recent Fever Within 48 Hours Sepsis New/Unexplained Change in Mental Status Sepsis Action Taken by Nursing 05/07/23 19:30 05/07/23 20:00 05/07/23 20:16 Temperature Temperature Source Pulse Rate 87 88 93 H Pulse Rate [Finger] Pulse Rate from SpO2 Sensor 88 89 87 Pulse Rhythm Respiratory Rate 31 H 20 27 H Respiratory Effort / Characteristics Respiratory Depth Respiratory Pattern Blood Pressure 167/87 H Blood Pressure [Right Arm] Blood Pressure Mean 113 Blood Pressure Mean [Right Arm] Pulse Oximetry 97 96 96 Oxygen Delivery Method Sepsis Recent Fever Within 48 Hours Sepsis New/Unexplained Change in Mental Status Sepsis Action Taken by Nursing 05/07/23 20:17 Temperature Temperature Source Pulse Rate 90 Pulse Rate [Finger] Pulse Rate from SpO2 Sensor 90 Pulse Rhythm Respiratory Rate 21 Respiratory Effort / Characteristics Respiratory Depth Respiratory Pattern Blood Pressure 172/85 H Blood Pressure [Right Arm] Blood Pressure Mean 114 Blood Pressure Mean [Right Arm] Pulse Oximetry 95 Oxygen Delivery Method Sepsis Recent Fever Within 48 Hours Sepsis New/Unexplained Change in Mental Status Sepsis Action Taken by Half-Way Medications Current Medication List: was personally reviewed by me Laboratory Data Attestation: I reviewed the patient's lab results. 05/07/23 16:43 05/07/23 16:43 Lab Results 05/07/23 05/07/23 05/07/23 Range/Units 16:43 16:43 16:43 WBC 22.04 H (4.8-10.8) K/ul RBC 4.27 L (4.70-6.10) M/uL Hgb 14.0 (14.0-18.0) g/dl Hct 40.6 L (42.0-52.0) % MCV 95.1 (80.0-100.0) fL MCH 32.8 (25.0-34.0) pg MCHC 34.5 (32.0-36.0) g/dL RDW Std Deviation 45.3 (36.4-46.3) fL RDW Coeff of Keyla 13.2 (11.5-14.5) % Plt Count 175 (130-400) K/uL MPV 10.3 (9.4-12.4) fL Immature Gran % (Auto) 0.5 % Neut % (Auto) 62.5 % Lymph % (Auto) 30.7 % Carlisle % (Auto) 5.4 % Eos % (Auto) 0.6 % Baso % (Auto) 0.3 % Neut # (Auto) 13.78 H (1.40-6.50) K/uL Lymph # (Auto) 6.76 H (1.2-3.4) K/uL Carlisle # (Auto) 1.20 H (0.11-0.59) K/uL Eos # (Auto) 0.14 (0-0.50) K/uL Baso # (Auto) 0.06 (0-0.2) K/uL Immature Gran # (Auto) 0.10 (0.01-0.20) K/uL PT 11.9 (9.0-12.0) Seconds INR 1.1 (0.9-1.1) APTT 34.3 H (21.0-31.0) Seconds PTT Ratio 1.2 D-Dimer 320 (0-500) ug/L FEU Sodium 135 L (136-145) mmol/L Potassium 4.4 (3.5-5.1) mmol/L Chloride 104 (98-107) mmol/L Carbon Dioxide 27 (21-32) mmol/L Anion Gap 4 (3-11) BUN 16 (6-23) mg/dl Creatinine 0.96 (0.6-1.4) mg/dl Est Cr Clr Drug Dosing 63.4 ml/min Est GFR ( Amer) 86.8 ml/min Est GFR (Non-Af Amer) 74.9 ml/min BUN/Creatinine Ratio 16.7 (10-20) Glucose 134 H (70-99(Fasting)) mg/dl Lactate (0.4-2.0) mmol/L Calcium 10.0 (8.6-10.3) mg/dl Total Bilirubin 1.5 H (0.2-1.0) mg/dl AST 22 (13-39) U/L ALT 12 (7-52) U/L Alkaline Phosphatase 73 (34-104) U/L Troponin I High Sens 46.6 H (0-20) pg/ml Total Protein 7.2 (6.0-8.3) gm/dl Albumin 3.9 (3.4-5.0) gm/dl Globulin 3.3 (2.5-4.0) gm/dl Albumin/Globulin Ratio 1.2 (0.9-2) Lipase 20 (11-82) U/L SARS-CoV-2, RNA, NAAT (NEGATIVE) 05/07/23 05/07/23 Range/Units 17:02 17:33 WBC (4.8-10.8) K/ul RBC (4.70-6.10) M/uL Hgb (14.0-18.0) g/dl Hct (42.0-52.0) % MCV (80.0-100.0) fL MCH (25.0-34.0) pg MCHC (32.0-36.0) g/dL RDW Std Deviation (36.4-46.3) fL RDW Coeff of Keyla (11.5-14.5) % Plt Count (130-400) K/uL MPV (9.4-12.4) fL Immature Gran % (Auto) % Neut % (Auto) % Lymph % (Auto) % Carlisle % (Auto) % Eos % (Auto) % Baso % (Auto) % Neut # (Auto) (1.40-6.50) K/uL Lymph # (Auto) (1.2-3.4) K/uL Carlisle # (Auto) (0.11-0.59) K/uL Eos # (Auto) (0-0.50) K/uL Baso # (Auto) (0-0.2) K/uL Immature Gran # (Auto) (0.01-0.20) K/uL PT (9.0-12.0) Seconds INR (0.9-1.1) APTT (21.0-31.0) Seconds PTT Ratio D-Dimer (0-500) ug/L FEU Sodium (136-145) mmol/L Potassium (3.5-5.1) mmol/L Chloride (98-107) mmol/L Carbon Dioxide (21-32) mmol/L Anion Gap (3-11) BUN (6-23) mg/dl Creatinine (0.6-1.4) mg/dl Est Cr Clr Drug Dosing ml/min Est GFR ( Amer) ml/min Est GFR (Non-Af Amer) ml/min BUN/Creatinine Ratio (10-20) Glucose (70-99(Fasting)) mg/dl Lactate 1.3 (0.4-2.0) mmol/L Calcium (8.6-10.3) mg/dl Total Bilirubin (0.2-1.0) mg/dl AST (13-39) U/L ALT (7-52) U/L Alkaline Phosphatase (34-104) U/L Troponin I High Sens (0-20) pg/ml Total Protein (6.0-8.3) gm/dl Albumin (3.4-5.0) gm/dl Globulin (2.5-4.0) gm/dl Albumin/Globulin Ratio (0.9-2) Lipase (11-82) U/L SARS-CoV-2, RNA, NAAT NEGATIVE (NEGATIVE) Administered Medications Discontinued Medications Enoxaparin Sodium (Enoxaparin 80 Mg/0.8 Ml Syr) 70 mg SQ NOW ONE Stop: 05/07/23 20:16 Last Admin: 05/07/23 21:35 Dose: 70 mg Documented By: TRACEY Ceftriaxone Sodium (Rocephin) 2,000 mg in 70 mls @ 140 mls/hr IV NOW STA Stop: 05/07/23 18:00 Last Infusion: 05/07/23 18:08 Dose: 0 mls/hr Documented By: Admin: 05/07/23 17:45 Dose: 140 mls/hr Documented By: MILAGRO Azithromycin 500 mg/ Dextrose 255 mls @ 125 mls/hr IV ONE ONE Stop: 05/07/23 19:33 Last Infusion: 05/07/23 22:46 Dose: 0 mls/hr Documented By: [facility] Admin: 05/07/23 18:36 Dose: 125 mls/hr Documented By: MILAGRO Ioversol (Optiray 320 125ml) 121 ml IV ONCE ONE Stop: 05/07/23 18:27 Last Admin: 05/07/23 18:27 Dose: 121 ml Documented By: KALEE Imaging Data Radiologist's Impression: Chest X-Ray 05/07/23 16:59 XR chest 1V portable HISTORY: Chest pain, nonspecific COMPARISON: Chest CT 04/28/2023. FINDINGS: No pneumothorax. No pleural effusions. The heart is normal in size. Emphysema again noted. No evidence for pulmonary edema. Calcifications within the aortic knob. Patchy airspace opacities within the right midlung zone and left upper lobe. This has slightly progressed. Mild interstitial thickening again noted. IMPRESSION: 1. Slight progression of the patchy airspace opacities within the right midlung zone and left upper lobe. This likely represents a pneumonia. 2. Emphysema. ACT 112: Negative or not required by law. Electronically signed by: Leobardo Smith M.D. 05/07/2023 5:21 PM Chest CTA 05/07/23 17:31 CHEST CTA for PULMONARY ARTERIES CT DOSE: 658.59 mGy.cm HISTORY: Left lung pain. History of recurrent pneumonia. TECHNIQUE: Multiaxial CT images of the chest were performed following the intravenous administration of contrast to evaluate the pulmonary arteries. Maximal intensity projection images were also obtained. A dose lowering technique was utilized adhering to the principles of ALARA. COMPARISON STUDY: Chest CT 04/28/2023. Chest CTA 05/22/2022. FINDINGS: Normal caliber thoracic aorta with no evidence for a dissection. A few scattered small perfusion defects seen within a left upper lobe subsegmental pulmonary and bilateral lower lobe superior subsegmental pulmonary arteries. These are new from the prior PE CT and therefore favor small peripheral acute pulmonary emboli. Otherwise, the central pulmonary arteries are patent. No evidence for right-sided heart strain. Normal esophagus. Trace left pleural effusion. No pericardial effusion. The heart is borderline enlarged. Limited views of the upper abdomen demonstrate a normal spleen and adrenal glands. Stab le hypodense lesions within the right hepatic dome and right kidney. These favor cysts. No significant mediastinal or hilar lymphadenopathy. No acute fractures identified. The central airways are patent. No pneumothorax. Mild biapical pleural-parenchymal scarlike densities remain unchanged. Groundglass densities within the left lower lobe posteriorly favor mild dependent change. Partial opacification of the distal right middle lobe and lingular bronchi with a few tree-in-bud nodular opacities. This is similar to the prior study and favors a chronic bronchiolitis. Peripheral wedge-shaped groundglass densities within the left upper lobe posteriorly and right lower lobe posteriorly are new from the prior study. These favor pulmonary infarcts given the small peripheral pulmonary emboli at these locations. A superimposed pneumonia could also have a similar appearance in the appropriate clinical setting. IMPRESSION: 1. A few scattered small perfusion defects within the left upper lobe and bilateral lower lobe subsegmental pulmonary arteries consistent with acute pulmonary emboli. 2. Trace left pleural effusion. 3. Peripheral wedge-shaped groundglass densities within the left upper lobe posteriorly and right lower lobe posteriorly are new from the prior study. These favor pulmonary infarcts given the small peripheral pulmonary emboli at these locations. A superimposed pneumonia could also have a similar appearance in the appropriate clinical setting. 4. Emphysema. 5. Partial opacification of the distal right middle lobe and lingular bronchi with a few tree-in-bud nodular opacities. This is similar to the prior study and favors a chronic bronchiolitis. ACT 112: Negative or not required by law. Electronically signed by: Leobardo Smith M.D. 05/07/2023 6:48 PM Discharge Plan Visit Data Chief Complaint: Chest Pain Stated Complaint: CHEST PAIN,PNEUMONIA, ED Provider: Luis Rangel Discharge Problem: Precordial chest pain, Leukocytosis, Pulmonary emboli, Failure of outpatient treatment, Elevated troponin Patient Disposition: Admitted As Inpatient Condition: Fair Discharge Instructions Interventions: ED Discharge Assessment Last Done: 05/07/23 21:29
[2023-05-07] MEDS ORDERED: cefTRIAXone SODIUM 2,000 MG/70 ML BAG IV STA (17:31)
[2023-05-07] MEDS ORDERED: AZITHROMYCIN 500 MG in DEXTROSE 5% 250 ML IV ONE (17:31)
[2023-05-07 17:38] LABS: Albumin Globulin Ratio 1.2 (0.9-2); Albumin Level 3.9 gm/dl (3.4-5.0); BUN Creatinine Ratio 16.7 (10-20); Bilirubin,Total 1.5 mg/dl (0.2-1.0); Creatinine Clr Calc Pharmacy 63.4 ml/min; Est GFR (African American) 86.8 ml/min; Est GFR (Non-African American) 74.9 ml/min; Globulin 3.3 gm/dl (2.5-4.0); Potassium 4.4 mmol/L (3.5-5.1); Total Protein 7.2 gm/dl (6.0-8.3)
[2023-05-07 17:43] LABS: Troponin I High Sensitivity 46.6 pg/ml (0-20)
[2023-05-07 17:50] LABS: D Dimer 320 ug/L FEU (0-500); INR 1.1 (0.9-1.1); Partial Thromboplastin Ratio 1.2; Partial Thromboplastin Time 34.3 Seconds (21.0-31.0); Prothrombin Time 11.9 Seconds (9.0-12.0)
[2023-05-07 18:11] LABS: Basophils # (auto) 0.06 K/uL (0-0.2); Basophils % (auto) 0.3 %; Eosinophils # (auto) 0.14 K/uL (0-0.50); Eosinophils % (auto) 0.6 %; Immature Granulocytes % (auto) 0.5 %; Lymphocytes # (auto) 6.76 K/uL (1.2-3.4); Lymphocytes % (auto) 30.7 %; Monocytes % (auto) 5.4 %; Neutrophils # (auto) 13.78 K/uL (1.40-6.50); Neutrophils % (auto) 62.5 %
[2023-05-07] MEDS ORDERED: OPTIRAY 320 125ml IV ONE (18:26)
--- NOTE | 2023-05-07 18:51 | CT Scan Report ---
CHEST CTA for PULMONARY ARTERIES CT DOSE: 658.59 mGy.cm HISTORY: Left lung pain. History of recurrent pneumonia. TECHNIQUE: Multiaxial CT images of the chest were performed following the intravenous administration of contrast to evaluate the pulmonary arteries. Maximal intensity projection images were also obtaine d. A dose lowering technique was utilized adhering to the principles of ALARA. COMPARISON STUDY: Chest CT 04/28/2023. Chest CTA 05/22/2022. FINDINGS: Normal caliber thoracic aorta with no evidence for a dissection. A few scattered small perf usion defects seen within a left upper lobe subsegmental pulmonary and bilateral lower lobe superior subsegmental pulmonary arteries. These are new from the prior PE CT and therefore favor small periphe ral acute pulmonary emboli. Otherwise, the central pulmonary arteries are patent. No evidence for rig ht-sided heart strain. Normal esophagus. Trace left pleural effusion. No pericardial effusion. The he art is borderline enlarged. Limited views of the upper abdomen demonstrate a normal spleen and adrena l glands. Stable hypodense lesions within the right hepatic dome and right kidney. These favor cysts. No significant mediastinal or hilar lymphadenopathy. No acute fractures identified. The central airw ays are patent. No pneumothorax. Mild biapical pleural-parenchymal scarlike densities remain unchange d. Groundglass densities within the left lower lobe posteriorly favor mild dependent change. Partial opacification of the distal right middle lobe and lingular bronchi with a few tree-in-bud nodular opa cities. This is similar to the prior study and favors a chronic bronchiolitis. Peripheral wedge-shape d groundglass densities within the left upper lobe posteriorly and right lower lobe posteriorly are n ew from the prior study. These favor pulmonary infarcts given the small peripheral pulmonary emboli a t these locations. A superimposed pneumonia could also have a similar appearance in the appropriate c linical setting. IMPRESSION: 1. A few scattered small perfusion defects within the left upper lobe and bilateral lower lobe subseg mental pulmonary arteries consistent with acute pulmonary emboli. 2. Trace left pleural effusion. 3. Peripheral wedge-shaped groundglass densities within the left upper lobe posteriorly and right low er lobe posteriorly are new from the prior study. These favor pulmonary infarcts given the small arabella pheral pulmonary emboli at these locations. A superimposed pneumonia could also have a similar appear ance in the appropriate clinical setting. 4. Emphysema. 5. Partial opacification of the distal right middle lobe and lingular bronchi with a few tree-in-bud nodular opacities. This is similar to the prior study and favors a chronic bronchiolitis. ACT 112: Negative or not required by law. Electronically signed by: Leobardo Smith M.D. 05/07/2023 6:48 PM
[2023-05-07] MEDS ORDERED: Heparin IV Adult Wt-Based Low-Dose WITH Bolus Protocol IV STA (19:13)
[2023-05-07] MEDS ORDERED: HEPARIN SOD (PORCINE) 1000 UNIT/ML IV ONE ×2 (19:28→19:45)
[2023-05-07] MEDS ORDERED: HEPARIN SODIUM/DEXTROSE 25,000 UNITS/500 ML BAG IV SCH (19:30)
[2023-05-07] MEDS ORDERED: ENOXAPARIN 80 MG/0.8 ML SYR SQ ONE (20:15)
[2023-05-07] MEDS ORDERED: ENOXAPARIN 1 MG/KG SQ SCH (20:15)
--- NOTE | 2023-05-07 20:20 | History & Physical Report ---
Date of Service May 07, 2023 Assessment & Plan (1) Pulmonary emboli: (2) DVT (deep venous thrombosis): (3) Failure of outpatient treatment: (4) Elevated troponin: (5) CLL (chronic lymphocytic leukemia): (6) MGUS (monoclonal gammopathy of unknown significance): (7) Prostate cancer: (8) HTN (hypertension): (9) Coronary artery disease: (10) Tobacco use disorder: (11) Chronic obstructive pulmonary disease: Plan acute pulmonary emboli/history of pulmonary emboli/ pulmonary infarcts/ left lower extremity DVT- Failure of outpatient treatment with Eliquis Start Lovenox 1 mg/kg subcu every 12 hours this evening, and likely changed to 1.5 mg/kg subcu daily starting tomorrow Could consider opinion from hematology or pulmonology regarding any other suggestions for treat long-term treatment Patient has 2 underlying cancers, CLL and prostate cancer, which make him hypercoagulable and are the likely answer for Eliquis failure elevated troponin/CAD/hypertension- troponin level 46.6, follow serially the patient will be admitted to telemetry for serial cardiac enzymes, serial EKG's, cardiac rhythm monitoring and a 2-D echocardiogram with Dopplers. Echocardiogram to assess for right heart strain Hold losartan History of Present Illness Chief Complaint: The patient presents to the emergency department with complaint of left-sided chest pain that is worse with a deep breath over the past 24 hours. Primary Care Provider: Xavier Pimentel DO The patient is a 77-year-old male with a past medical history including CLL, prostate cancer, MGUS, coronary disease, tobacco use disorder, COPD and history of pulmonary embolus June 2022. He has been continued on Eliquis during this time, and reports taking the medication as directed. Work-up in the emergency department included laboratories and imaging. Significant laboratories: WBC 22.04, glucose 134, total bilirubin 1.5, troponin 46.6. CT angiography PE protocol showed pulmonary emboli in the left upper lobe and bilateral lower lobes. There were also pulmonary infarcts in the left upper lobe and right lower lobe Changes in the right middle lobe and lingula suggestive of chronic bronchitis Allergies Allergy/AdvReac Type Severity Reaction Status Date / Time No Known Drug Allergies Allergy Verified 04/21/23 08:52 Home Medications Medication Instructions Recorded Confirmed Type losartan 25 mg tablet 25 mg PO DAILY #90 tabs 04/18/22 05/07/23 Rx apixaban 5 mg tablet (Eliquis) 5 mg PO BID #60 tabs 02/24/23 05/07/23 Rx Metamucil 0 mg PO DAILY 05/07/23 05/07/23 History Past Med/Surg History Medical History Actinic keratosis Aortic atherosclerosis Chronic obstructive pulmonary disease CLL (chronic lymphocytic leukemia) (~2007) No treatment required Coronary artery disease Hematuria, gross History of bleeding ulcers History of colon polyps Monoclonal gammopathy Pneumothorax Skin cancer Nonmelanoma;End of nose Surgical History History of colonoscopy History of esophagogastroduodenoscopy (EGD) History of strabismus surgery History of tonsillectomy History of tooth extraction Family History Sister Breast cancer Brother Prostate cancer CLL (chronic lymphocytic leukemia) Mother , 102yo Natural with unknown cause Father , 60yo Stomach cancer Brother Bone cancer Brother No problems noted. Brother No problems noted. Brother No problems noted. Sister No problems noted. Daughter No problems noted. Daughter No problems noted. Son No problems noted. Other No family history of adverse response to anesthesia Denies family history of Ovarian cancer Myocardial infarction Colorectal cancer Social History Smoking Status: Current every day smoker Tobacco Type: Cigars Cigarettes Per Day: 2 cigars a day; Second Hand Exposure: No; Do You Dip or Chew Tobacco: No; Hx Alcohol Use: No Hx Substance Use: No Preferred Language: Bulgarian Communication Ability: Effective Visual Impairment: Limited Hearing Ability: Normal Db2 Dba Required: No Beliefs That Will Affect Care: None marital status: Current Living Situation: Spouse Current Living Situation Comment: Lives at home with current occupational status: retired current occupation: Retired from [employer];Works parttime at [employer] How many Children do You have: 2 Other Information That Helps Us Care for You: No Feels Safe at Home: Yes Safety Concerns: Feels Safe At This Time Childhood Exposure to Second-Hand Smoke: Yes Diet: regular caffeine: Yes (3 cups/day) during the past year weight has: remained stable Dental Care, Regularly: Yes Physical Activity Frequency: Daily Physical Activity Frequency Comment: active lifestyle Seatbelt Use: always Sunscreen Use: Yes Do you think of yourself as: straight/heterosexual Assistive Devices: None Review of Systems Review of Systems: the patient denies chest pain, palpitations, lower extremity swelling, sore throat, fevers, chills, sweats, fatigue, nausea, vomiting, diarrhea , consti pation, abdominal pain, pelvic pain, blood in urine or stool, dysuria, urinary frequency or urgency, lightheadedness, dizziness, headache, memory loss, loss of consciousness, rash, abnormal bruising or bleeding, imbalance, focal or generalized weakness, numbness or tingling in arms or legs, generalized arthralgias or myalgias, back or neck pain, or night sweats. The review of systems is otherwise negative other than for that already noted above, and at least 10 systems have been reviewed. Physical Exam Physical Exam: The patient is awake, alert and oriented 3, well developed and well nourished, normocephalic and atraumatic, lying in bed and in no acute distress. HEENT--PERRL, EOMI, mucous membranes and oropharynx Normal. Neck--supple. No JVD. No bruits. Thyroid normal, trachea midline, no adenopathy. Heart--normal S1 and S2. No murmurs, rubs or gallops. Lungs--clear bilaterally, no respiratory distress, no accessory muscle use. Abdomen--normal bowel sounds and soft. Nontender. Nondistended, no hernias or masses, no organomegaly. Extremities--no cyanosis or clubbing. No edema. There are good distal pulses b/l. Dermatologic--normal skin turgor, normal color, no abnormal lymph nodes, no rash. Neurologic--cranial nerves II through XII grossly intact. Rheumatologic--normal range of motion. Psychiatric--normal affect. Results & Data Results & Data Vital Signs (Past 12 Hours) Vital Signs Temp Pulse Resp BP Pulse Ox O2 Del Method 05/07/23 17:00 81 24 139/85 97 05/07/23 16:42 77 23 97 05/07/23 17:04 83 26 H 98 Room Air 05/07/23 16:42 79 05/07/23 16:27 Room Air 05/07/23 16:27 Room Air 05/07/23 16:17 36.9 C 86 18 123/72 94 Room Air Laboratory Results Laboratory Results WBC 22.04 K/ul (4.8-10.8) H 05/07/23 16:43 RBC 4.27 M/uL (4.70-6.10) L 05/07/23 16:43 Hgb 14.0 g/dl (14.0-18.0) 05/07/23 16:43 Hct 40.6 % (42.0-52.0) L 05/07/23 16:43 MCV 95.1 fL (80.0-100.0) 05/07/23 16:43 MCH 32.8 pg (25.0-34.0) 05/07/23 16:43 MCHC 34.5 g/dL (32.0-36.0) 05/07/23 16:43 RDW Std Deviation 45.3 fL (36.4-46.3) 05/07/23 16:43 RDW Coeff of Keyla 13.2 % (11.5-14.5) 05/07/23 16:43 Plt Count 175 K/uL (130-400) 05/07/23 16:43 MPV 10.3 fL (9.4-12.4) 05/07/23 16:43 Immature Gran % (Auto) 0.5 % 05/07/23 16:43 Neut % (Auto) 62.5 % 05/07/23 16:43 Lymph % (Auto) 30.7 % 05/07/23 16:43 [place] % (Auto) 5.4 % 05/07/23 16:43 Eos % (Auto) 0.6 % 05/07/23 16:43 Baso % (Auto) 0.3 % 05/07/23 16:43 Neut # (Auto) 13.78 K/uL (1.40-6.50) H 05/07/23 16:43 Lymph # (Auto) 6.76 K/uL (1.2-3.4) H 05/07/23 16:43 [place] # (Auto) 1.20 K/uL (0.11-0.59) H 05/07/23 16:43 Eos # (Auto) 0.14 K/uL (0-0.50) 05/07/23 16:43 Baso # (Auto) 0.06 K/uL (0-0.2) 05/07/23 16:43 Immature Gran # (Auto) 0.10 K/uL (0.01-0.20) 05/07/23 16:43 PT 11.9 Seconds (9.0-12.0) 05/07/23 16:43 INR 1.1 (0.9-1.1) 05/07/23 16:43 APTT 34.3 Seconds (21.0-31.0) H 05/07/23 16:43 PTT Ratio 1.2 05/07/23 16:43 D-Dimer 320 ug/L FEU (0-500) 05/07/23 16:43 Sodium 135 mmol/L (136-145) L 05/07/23 16:43 Potassium 4.4 mmol/L (3.5-5.1) 05/07/23 16:43 Chloride 104 mmol/L (98-107) 05/07/23 16:43 Carbon Dioxide 27 mmol/L (21-32) 05/07/23 16:43 Anion Gap 4 (3-11) 05/07/23 16:43 BUN 16 mg/dl (6-23) 05/07/23 16:43 Creatinine 0.96 mg/dl (0.6-1.4) 05/07/23 16:43 Est Cr Clr Drug Dosing 63.4 ml/min 05/07/23 16:43 Est GFR ( Amer) 86.8 ml/min 05/07/23 16:43 Est GFR (Non-Af Amer) 74.9 ml/min 05/07/23 16:43 BUN/Creatinine Ratio 16.7 (10-20) 05/07/23 16:43 Glucose 134 mg/dl (70-99(Fasting)) H 05/07/23 16:43 Lactate 1.3 mmol/L (0.4-2.0) 05/07/23 17:33 Calcium 10.0 mg/dl (8.6-10.3) 05/07/23 16:43 Total Bilirubin 1.5 mg/dl (0.2-1.0) H 05/07/23 16:43 AST 22 U/L (13-39) 05/07/23 16:43 ALT 12 U/L (7-52) 05/07/23 16:43 Alkaline Phosphatase 73 U/L (34-104) 05/07/23 16:43 Troponin I High Sens 35.6 pg/ml (0-20) H D 05/07/23 22:52 Total Protein 7.2 gm/dl (6.0-8.3) 05/07/23 16:43 Albumin 3.9 gm/dl (3.4-5.0) 05/07/23 16:43 Globulin 3.3 gm/dl (2.5-4.0) 05/07/23 16:43 Albumin/Globulin Ratio 1.2 (0.9-2) 05/07/23 16:43 Lipase 20 U/L (11-82) 05/07/23 16:43 SARS-CoV-2, RNA, NAAT NEGATIVE (NEGATIVE) 05/07/23 17:02 Impressions Chest X-Ray 05/07/23 16:59 XR chest 1V portable HISTORY: Chest pain, nonspecific COMPARISON: Chest CT 04/28/2023. FINDINGS: No pneumothorax. No pleural effusions. The heart is normal in size. Emphysema again noted. No evidence for pulmonary edema. Calcifications within the aortic knob. Patchy airspace opacities within the right midlung zone and left upper lobe. This has slightly progressed. Mild interstitial thickening again noted. IMPRESSION: 1. Slight progression of the patchy airspace opacities within the right midlung zone and left upper lobe. This likely represents a pneumonia. 2. Emphysema. ACT 112: Negative or not required by law. Electronically signed by: Leobardo Smith M.D. 05/07/2023 5:21 PM Chest CTA 05/07/23 17:31 CHEST CTA for PULMONARY ARTERIES CT DOSE: 658.59 mGy.cm HISTORY: Left lung pain. History of recurrent pneumonia. TECHNIQUE: Multiaxial CT images of the chest were performed following the intravenous administration of contrast to evaluate the pulmonary arteries. Maximal intensity projection images were also obtained. A dose lowering technique was utilized adhering to the principles of ALARA. COMPARISON STUDY: Chest CT 04/28/2023. Chest CTA 05/22/2022. FINDINGS: Normal caliber thoracic aorta with no evidence for a dissection. A few scattered small perfusion defects seen within a left upper lobe subsegmental pulmonary and bilateral lower lobe superior subsegmental pulmonary arteries. These are new from the prior PE CT and therefore favor small peripheral acute pulmonary emboli. Otherwise, the central pulmonary arteries are patent. No evidence for right-sided heart strain. Normal esophagus. Trace left pleural effusion. No pericardial effusion. The heart is borderline enlarged. Limited views of the upper abdomen demonstrate a normal spleen and adrenal glands. Stable hypodense lesions within the right hepatic dome and right kidney. These favor cysts. No significant mediastinal or hilar lymphadenopathy. No acute fractures identified. The central airways are patent. No pneumothorax. Mild biapical pleural-parenchymal scarlike densities remain unchanged. Groundglass densities within the left lower lobe posteriorly favor mild dependent change. Partial opacification of the distal right middle lobe and lingular bronchi with a few tree-in-bud nodular opacities. This is similar to the prior study and favors a chronic bronchiolitis. Peripheral wedge-shaped groundglass densities within the left upper lobe posteriorly and right lower lobe posteriorly are new from the prior study. These favor pulmonary infarcts given the small peripheral pulmonary emboli at these locations. A superimposed pneumonia could also have a similar appearance in the appropriate clinical setting. IMPRESSION: 1. A few scattered small perfusion defects within the left upper lobe and bilateral lower lobe subsegmental pulmonary arteries consistent with acute pulmonary emboli. 2. Trace left pleural effusion. 3. Peripheral wedge-shaped groundglass densities within the left upper lobe posteriorly and right lower lobe posteriorly are new from the prior study. These favor pulmonary infarcts given the small peripheral pulmonary emboli at these locations. A superimposed pneumonia could also have a similar appearance in the appropriate clinical setting. 4. Emphysema. 5. Partial opacification of the distal right middle lobe and lingular bronchi with a few tree-in-bud nodular opacities. This is similar to the prior study and favors a chronic bronchiolitis. ACT 112: Negative or not required by law. Electronically signed by: Leobardo Smith M.D. 05/07/2023 6:48 PM Venous Doppler Study 05/07/23 21:08 Exam(s): US VENOUS BILATERAL LOWER EXTREMITIES EXAM: US Duplex Bilateral Lower Extremities Veins CLINICAL HISTORY: Reason for exam: PE's. TECHNIQUE: Real-time duplex ultrasound scan of the bilateral lower extremity veins integrating B-mode two-dimensional vascular structure, Doppler spectral analysis, color flow Doppler imaging and compression. COMPARISON: No relevant prior studies available. FINDINGS: Right deep veins: Unremarkable. No DVT in the right common femoral, femoral, proximal deep femoral or popliteal veins. The veins demonstrate normal color flow, are normally compressible, with normal phasic flow and/or augmentation response. The interrogated calf veins are patent. Right superficial veins: Unremarkable. No thrombus in the saphenofemoral junction. Left deep veins: No DVT in the left common femoral, femoral, proximal deep femoral or popliteal veins. One of two left peroneal veins is noncompressible. The interrogated left anterior tibial and posterior tibial veins are patent. Left superficial veins: Unremarkable. No thrombus in the saphenofemoral junction. Soft tissues: No acute findings. No popliteal cyst. IMPRESSION: 1. One of two left peroneal veins is noncompressible. Findings are most consistent with occlusive thrombus in this region. No proximal extension into the left popliteal or left femoral vein is noted. No other left calf vein occlusion noted. 2. No evidence for deep vein thrombosis involving the right lower extremity. Electronically signed by: Fabrizio Arevalo MD 05/08/23 00:16 AM Code Status & VTE Plan Code Status Full code VTE Prophylaxis Plan VTE Prophylaxis will be ordered: Yes PG Care Time/CCT Total # of Minutes Spent Total Time Spent with Patient: Total time spent is greater than 50% in coordination of care (as documented) at patient's floor/unit and/or counseling patient: Coding Level of Care Code 70365 INT INP/OBS CARE 3/75MIN Diagnoses Pulmonary emboli I26.99 Acute cor pulmonale presence: without acute cor pulmonale Chronicity: acute Pulmonary embolism type: unspecified DVT (deep venous thrombosis) I82.409 Failure of outpatient treatment Z78.9 Elevated troponin R77.8 CLL (chronic lymphocytic leukemia) C91.90 MGUS (monoclonal gammopathy of unknown significance) D47.2 Prostate cancer C61 HTN (hypertension) I10 Coronary artery disease I25.10 Tobacco use disorder F17.200 Chronic obstructive pulmonary disease J44.9 (1) Pulmonary emboli Acute cor pulmonale presence: without acute cor pulmonale Chronicity: acute Pulmonary embolism type: unspecified Qualified Code(s): I26.99 - Other pulmonary embolism without acute cor pulmonale
[2023-05-07] MEDS ORDERED: ONDANSETRON INJ 2 MG/ML 2 ML VIAL IV PRN (22:08)
[2023-05-07] MEDS ORDERED: ACETAMINOPHEN 325 MG TAB PO PRN (22:08)
--- NOTE | 2023-05-08 00:17 | Ultrasound Report ---
Exam(s): US VENOUS BILATERAL LOWER EXTREMITIES EXAM: US Duplex Bilateral Lower Extremities Veins CLINICAL HISTORY: Reason for exam: PE's. TECHNIQUE: Real-time duplex ultrasound scan of the bilateral lower extremity veins integrating B-mode two-dimensional vascular structure, Doppler spectral analysis, color flow Doppler imaging and compression. COMPARISON: No relevant prior studies available. FINDINGS: Right deep veins: Unremarkable. No DVT in the right common femoral, femoral, proximal deep femoral or popliteal veins. The veins demonstrate normal color flow, are normally compressible, with normal phasic flow and/or augmentation response. The interrogated calf veins are patent. Right superficial veins: Unremarkable. No thrombus in the saphenofemoral junction. Left deep veins: No DVT in the left common femoral, femoral, proximal deep femoral or popliteal veins. One of two left peroneal veins is noncompressible. The interrogated left anterior tibial and posterior tibial veins are patent. Left superficial veins: Unremarkable. No thrombus in the saphenofemoral junction. Soft tissues: No acute findings. No popliteal cyst. IMPRESSION: 1. One of two left peroneal veins is noncompressible. Findings are most consistent with occlusive thrombus in this region. No proximal extension into the left popliteal or left femoral vein is noted. No other left calf vein occlusion noted. 2. No evidence for deep vein thrombosis involving the right lower extremity. Electronically signed by: Fabrizio Arevalo MD 05/08/23 00:16 AM
[2023-05-08 06:27] LABS: Albumin Globulin Ratio 1.1 (0.9-2); Albumin Level 3.5 gm/dl (3.4-5.0); BUN Creatinine Ratio 11.9 (10-20); Bilirubin,Total 1.8 mg/dl (0.2-1.0); Calcium 9.7 mg/dl (8.6-10.3); Creatinine Clr Calc Pharmacy 70.3 ml/min; Est GFR (African American) 96.5 ml/min; Est GFR (Non-African American) 83.3 ml/min; Globulin 3.2 gm/dl (2.5-4.0); Magnesium 1.9 mg/dl (1.7-2.4); Potassium 4.1 mmol/L (3.5-5.1); Total Protein 6.7 gm/dl (6.0-8.3)
[2023-05-08 06:28] LABS: Hematocrit (blood only) 39.3 % (42.0-52.0); Hemoglobin 13.8 g/dl (14.0-18.0); Mean Corpuscular Hemoglobin 32.8 pg (25.0-34.0); Mean Corpuscular Hgb Conc 35.1 g/dL (32.0-36.0); Mean Corpuscular Volume 93.3 fL (80.0-100.0); Mean Platelet Volume 10.3 fL (9.4-12.4); Platelet Count 159 K/uL (130-400); RDW Standard Deviation 44.5 fL (36.4-46.3); Red Blood Count 4.21 M/uL (4.70-6.10)
[2023-05-08 06:52] LABS: Basophils # (auto) 0.06 K/uL (0-0.2); Basophils % (auto) 0.3 %; Eosinophils # (auto) 0.02 K/uL (0-0.50); Eosinophils % (auto) 0.1 %; Immature Granulocytes # (auto) 0.13 K/uL (0.01-0.20); Immature Granulocytes % (auto) 0.6 %; Lymphocytes # (auto) 6.37 K/uL (1.2-3.4); Lymphocytes % (auto) 28.7 %; Monocytes # (auto) 1.51 K/uL (0.11-0.59); Monocytes % (auto) 6.8 %; Neutrophils # (auto) 14.11 K/uL (1.40-6.50); Neutrophils % (auto) 63.5 %
[2023-05-08 07:01] LABS: Troponin I High Sensitivity 34.1 pg/ml (0-20)
[2023-05-08] MEDS: ENOXAPARIN 80 MG/0.8 ML SYR SQ SCH ×2 (09:02→19:52)
--- NOTE | 2023-05-08 10:10 | Oncology Consultation ---
Date of Consultation May 08, 2023 Assessment & Plan (1) Pulmonary emboli: (2) DVT (deep venous thrombosis): (3) Hx of pulmonary embolus: (4) CLL (chronic lymphocytic leukemia): (5) MGUS (monoclonal gammopathy of unknown significance): (6) Failure of outpatient treatment: Plan Gentleman with h/o CLL, MGUS, h/o PE who presented with acute PE while on Eliquis. -Agree with Lovenox. Given DOAC failure, recommend switching fci anticoagulation to coumadin. Can start coumadin 5mg po tonight. Continue Lovenox until INR is within therapeutic range (2-3) for at least 2 days. -Consider CT abdomen/pelvis for restaging CLL/low grade prostate cancer to evaluate for predisposing factors to anticoagulation failure such as disease progression. Will recheck SPEP with NAIDA,quant Ig and free light chains to assess for progression of MGUS Thanks for this consult. Feel free to call if you have any questions History of Present Illness Reason for Consultation: Pulmonary embolism Attending Physician: Kirstie Cast MD History of Present Illness 77 year old gentleman with history of Jenkins stage 0 CLL, IgG Lambda MGUS on observation, low grade Prostate cancer on observation and history of Pulmonary embolism diagnosed on chronic anticoagulation with Eliquis. He presented to the ER at [facility] with left sided chest pain. CTA Chest revealed few scattered small perfusion defects within the left upper lobe and bilateral lower lobe subsegmental pulmonary arteries consistent with acute pulmonary emboli, Trace left pleural effusion, Peripheral wedge-shaped groundglass densities within the left upper lobe posteriorly and right lower lobe posteriorly new from the prior study favoring pulmonary infarcts given the small peripheral pulmonary emboli at these locations. A superimposed pneumonia could also have a similar appearance in the appropriate clinical setting. Lower extremity ultrasound revealed left peroleal vein thrombus. He was started on weight based therapeutic lovenox. Allergies Allergy/AdvReac Type Severity Reaction Status Date / Time No Known Drug Allergies Allergy Verified 04/21/23 08:52 Home Medications Medication Instructions Recorded Confirmed Type losartan 25 mg tablet 25 mg PO DAILY #90 tabs 04/18/22 05/07/23 Rx apixaban 5 mg tablet (Eliquis) 5 mg PO BID #60 tabs 02/24/23 05/07/23 Rx Metamucil 0 mg PO DAILY 05/07/23 05/07/23 History Patient History Medical History Actinic keratosis Aortic atherosclerosis Chronic obstructive pulmonary disease CLL (chronic lymphocytic leukemia) (~2007) No treatment required Coronary artery disease Hematuria, gross History of bleeding ulcers History of colon polyps Monoclonal gammopathy Pneumothorax Skin cancer Nonmelanoma;End of nose Surgical History History of colonoscopy History of esophagogastroduodenoscopy (EGD) History of strabismus surgery History of tonsillectomy History of tooth extraction Family History Sister Breast cancer Brother Prostate cancer CLL (chronic lymphocytic leukemia) Mother , 102yo Natural with unknown cause Father , 60yo Stomach cancer Brother Bone cancer Brother No problems noted. Brother No problems noted. Brother No problems noted. Sister No problems noted. Daughter No problems noted. Daughter No problems noted. Son No problems noted. Other No family history of adverse response to anesthesia Denies family history of Ovarian cancer Myocardial infarction Colorectal cancer Social History Smoking Status: Current every day smoker Tobacco Type: Cigars Cigarettes Per Day: 2 cigars a day; Second Hand Exposure: No; Do You Dip or Chew Tobacco: No; Hx Alcohol Use: No Hx Substance Use: No Preferred Language: Yoruba Communication Ability: Effective Visual Impairment: Limited Hearing Ability: Normal Telephone Directory Deliverer Required: No Beliefs That Will Affect Care: None marital status: Current Living Situation: Spouse Current Living Situation Comment: Lives at home with current occupational status: retired current occupation: Retired from [employer];Works parttime at [employer] How many Children do You have: 2 Other Information That Helps Us Care for You: No Feels Safe at Home: Yes Safety Concerns: Feels Safe At This Time Childhood Exposure to Second-Hand Smoke: Yes Diet: regular caffeine: Yes (3 cups/day) during the past year weight has: remained stable Dental Care, Regularly: Yes Physical Activity Frequency: Daily Physical Activity Frequency Comment: active lifestyle Seatbelt Use: always Sunscreen Use: Yes Do you think of yourself as: straight/heterosexual Assistive Devices: None Results & Data Vital Signs (Past 12 Hours) Vital Signs Temp Pulse Pulse Resp BP Pulse Ox O2 Del Method 05/08/23 07:16 77 05/08/23 07:32 36.7 C 73 18 139/76 95 Room Air 05/08/23 02:34 36.5 C 81 16 113/61 95 Room Air 05/07/23 23:19 90 05/07/23 22:33 36.4 C L 88 20 155/84 H 97 Room Air 05/07/23 22:34 Room Air (1) Pulmonary emboli Acute cor pulmonale presence: without acute cor pulmonale Chronicity: acute Pulmonary embolism type: unspecified Qualified Code(s): I26.99 - Other pulmonary embolism without acute cor pulmonale
--- NOTE | 2023-05-08 15:13 | XCELERA ---
[id number] [id number]
[2023-05-08] MEDS ORDERED: WARFARIN SOD 5 MG TAB PO SCH (16:00)
--- NOTE | 2023-05-08 18:21 | Hospitalist Progress Note ---
Date of Service May 08, 2023 Assessment & Plan (1) Pulmonary emboli: Plan: Presented with pleuritic chest pain on the left side, no hypoxia, mildly elevated troponin Found to have acute left sided and right lower pulmonary emboli with pulmonary infarct. No pneumonia No fevers or leukocytosis, no sputum production or hemoptysis-was given 1 dose of ceftriaxone and azithromycin in the ER but not continued With a history of PE and on Eliquis with good compliance prior to admission. Found to have left peroneal vein DVT on venous Doppler here Chest pain improving,Not hypoxic Discussed with hematology-begin Lovenox 1 mg/kg subcu every 12 hours as a bridge to anticoagulation with Coumadin-start Coumadin 5 Mg p.o. once daily Follow INR in the morning We will get him set up with anticoagulation clinic Begin ambulation tomorrow Patient has 2 underlying cancers, CLL, MGUS, and prostate cancer, which make him hypercoagulable and are the likely answer for Eliquis failure-check CT abdomen/pelvis with IV contrast to look for metastases, check SPEP, NAIDA, immunoglobulins as per oncology recommendation (2) DVT (deep venous thrombosis): Plan: as above (3) Elevated troponin: Plan: demand ischemia elevated troponin/CAD/hypertension- troponin level 46.6/35/34 ECG negative for ischemia Echocardiogram with chronic hypokinesis of the basal inferior wall, preserved EF Okay to restart losartan in the morning (4) CLL (chronic lymphocytic leukemia): Plan: Follows with oncology, WBC count elevated at 22 Appreciate oncology consultation (5) MGUS (monoclonal gammopathy of unknown significance): Plan: Checking SPEP, immunoglobulins (6) Prostate cancer: Plan: Checking CT abdomen/pelvis for metastases (7) HTN (hypertension): Plan: Held losartan but blood pressures are elevated Restart in the morning (8) Coronary artery disease: Plan: Noted in history but patient has not had any stents or CO that he is aware of (9) Tobacco use disorder: Plan: History of smoking and COPD (10) Chronic obstructive pulmonary disease: Plan: No acute issues Plan Disposition continues and telemetry, but likely discharged home tomorrow Discussed care with and daughter at the bedside Admission and Anticipated Discharge Date Admission Date: May 07, 2023 Anticipated date of discharge: 05/09/23 Subjective Patient feeling much better, the pain with deep inspiration is reduced. Not short of breath not requiring supplemental O2. He is no longer coughing and has not coughed up any sputum or hemoptysis. He has no pain or swelling in the legs. He denies any bleeding from anywhere. He denies diarrhea or constipation. Telemetry with normal sinus rhythm with rates in the 80s to 90s He has not ambulated since admission. Physical Exam Constitutional: WD/WN, vitals as above Neck: trachea midline, no thyromegaly Respiratory: normal respiratory effort Auscultation: + rhonchi (left upper lung ac); no crackles and no wheezes Cardiovascular: RRR, no murmur, no edema Chest (Breasts): Chest: normal inspection of chest Gastrointestinal (Abdomen): normal bowel sounds, soft, nontender, no hepatosplenomegaly Musculoskeletal: Extremities: extremities normal to inspection; no cyanosis and no clubbing Skin: no rashes, warm and dry Neurologic: moves all extremities and awake; no focal motor deficits Psychiatric: A+Ox3, euthymic affect Lymphatic: no lymphedema Results & Data Results & Data Vital Signs (Past 12 Hours) Vital Signs Temp Pulse Pulse Resp BP Pulse Ox O2 Del Method 05/08/23 15:57 36.6 C 70 18 153/69 H 94 Room Air 05/08/23 14:53 74 05/08/23 11:25 36.5 C 69 18 148/79 H 95 Room Air 05/08/23 10:39 Room Air 05/08/23 07:16 77 05/08/23 07:32 36.7 C 73 18 139/76 95 Room Air Laboratory Results CBC, BMP, magnesium, LFTs reviewed Troponin reviewed Blood cultures-no growth to date Diagnostic Findings Echocardiogram reviewed More PG Care Time/CCT Total # of Minutes Spent Total Time Spent with Patient: Total time spent is greater than 50% in coordination of care (as documented) at patient's floor/unit and/or counseling patient: Coding Level of Care Code 75394 SUB INP/OBS CARE 3/50MIN Diagnoses Pulmonary emboli I26.99 Acute cor pulmonale presence: without acute cor pulmonale Chronicity: acute Pulmonary embolism type: unspecified DVT (deep venous thrombosis) I82.409 Elevated troponin R77.8 CLL (chronic lymphocytic leukemia) C91.90 MGUS (monoclonal gammopathy of unknown significance) D47.2 Prostate cancer C61 HTN (hypertension) I10 Coronary artery disease I25.10 Tobacco use disorder F17.200 Chronic obstructive pulmonary disease J44.9 (1) Pulmonary emboli Acute cor pulmonale presence: without acute cor pulmonale Chronicity: acute Pulmonary embolism type: unspecified Qualified Code(s): I26.99 - Other pulmonary embolism without acute cor pulmonale
[2023-05-08] MEDS ORDERED: OPTIRAY 320 100ml IV ONE (18:41)
--- NOTE | 2023-05-08 19:55 | CT Scan Report ---
Exam(s): CT ABDOMEN + PELVIS With Contrast IV Amt: 95ML OPTIRAY 320 EXAM: CT Abdomen and Pelvis With Intravenous Contrast CLINICAL HISTORY: Reason for exam: restaging prostate CA and CLL. TECHNIQUE: Axial computed tomography images of the abdomen and pelvis with intravenous contrast. CTDI is 12.28 mGy and DLP is 582.3 mGy-cm. Automated exposure control was utilized for the study. A dose lowering technique was utilized adhering to the principles of ALARA. CONTRAST: Patient received 95ML OPTIRAY 320 of IV contrast COMPARISON: MRI 03/06/21. FINDINGS: Lung bases: Minimal scarring and pneumonitis in the lung bases. Pleural space: Trace left pleural effusion. ABDOMEN: Liver: Hepatic cyst. Gallbladder and bile ducts: No radiodense stones. No biliary ductal dilation. Pancreas: Unremarkable. Spleen: Unremarkable. Adrenals: Unremarkable. Kidneys and ureters: Right nephrolith and cyst. Stomach and bowel: No nida mural thickening. Nonobstructive bowel gas pattern. PELVIS: Appendix: No findings to suggest acute appendicitis. Bladder: Unremarkable. Reproductive: Large heterogeneous prostate with calcifications and high attenuating foci. ABDOMEN and PELVIS: Intraperitoneal space: Unremarkable. Bones/joints: No acute fracture. Soft tissues: Unremarkable. Vasculature: No acute process. IMPRESSION: Large heterogeneous prostate with calcifications and high attenuating foci. Electronically signed by: Fabio Nelson M.D. 05/08/23 19:54 PM
--- NOTE | 2023-05-09 06:10 | Progress Note ---
Date of Service May 09, 2023 Assessment & Plan (1) DVT (deep venous thrombosis): (2) CLL (chronic lymphocytic leukemia): (3) Pulmonary emboli: Acute cor pulmonale presence: without acute cor pulmonale Chronicity: acute Pulmonary embolism type: unspecified Qualified Code(s): I26.99 - Other pulmonary embolism without acute cor pulmonale Plan -Continue Lovenox/Warfarin. Lovenox can be discontinued when INR is therapeutic for atleast 2 days. This can be followed at coumadin clinic -CT A/P showed large prostate (as expected).PSA ordered. He should continue f/u with urology -He is already scheduled for outpatient f/u at [facility] in . Will arrange for sooner appt to review results of ordered myeloma labs Admission and Anticipated Discharge Date Admission Date: May 07, [address] A/P unremarkable except for enlarged prostate. Started warfarin yesterday with INR pending. Results & Data Vital Signs (Past 12 Hours) Vital Signs Temp Pulse Resp BP BP Pulse Ox O2 Del Method 05/09/23 03:06 36.9 C 73 18 144/75 H 95 Room Air 05/08/23 23:10 36.9 C 76 18 155/91 H 95 Room Air 05/08/23 19:22 37.5 C 76 18 139/79 96 Room Air
[2023-05-09 06:15] LABS: Hematocrit (blood only) 39.3 % (42.0-52.0); Mean Corpuscular Hemoglobin 32.9 pg (25.0-34.0); Mean Corpuscular Hgb Conc 35.6 g/dL (32.0-36.0); Mean Corpuscular Volume 92.5 fL (80.0-100.0); Mean Platelet Volume 10.4 fL (9.4-12.4); Platelet Count 169 K/uL (130-400); RDW Standard Deviation 43.8 fL (36.4-46.3); Red Blood Count 4.25 M/uL (4.70-6.10); White Blood Count 14.68 K/ul (4.8-10.8)
--- NOTE | 2023-05-09 06:30 | Electrocardiogram Report ---
Test Reason : Blood Pressure : / mmHG Vent. Rate : 077 BPM Atrial Rate : 077 BPM P-R Int : 210 ms QRS Dur : 098 ms QT Int : 400 ms P-R-T Axes : 080 067 061 degrees QTc Int : 452 ms Sinus rhythm with 1st degree A-V block Possible Left atrial enlargement Incomplete right bundle branch block Borderline ECG When compared with ECG of 22-MAY-2022 17:23, No significant change was found Confirmed by Eddie Bernstein ([id number]) on 05/09/2023 6:29:58 AM Referred By: REFERRED SELF Confirmed By:Eddie Bernstein
[2023-05-09 06:33] LABS: Albumin Globulin Ratio 0.9 (0.9-2); Albumin Level 3.3 gm/dl (3.4-5.0); BUN Creatinine Ratio 16.7 (10-20); Calcium 9.5 mg/dl (8.6-10.3); Creatinine Clr Calc Pharmacy 81.1 ml/min; Est GFR (African American) 102.8 ml/min; Est GFR (Non-African American) 88.7 ml/min; Globulin 3.5 gm/dl (2.5-4.0); Immunoglobulin A 98.3 mg/dl (70-400); Immunoglobulin G 1247.6 mg/dl (635-1741); Total Protein 6.8 gm/dl (6.0-8.3)
[2023-05-09 06:35] LABS: Prothrombin Time 11.2 Seconds (9.0-12.0)
[2023-05-09 07:06] LABS: Basophils # (auto) 0.04 K/uL (0-0.2); Basophils % (auto) 0.3 %; Eosinophils # (auto) 0.11 K/uL (0-0.50); Eosinophils % (auto) 0.7 %; Immature Granulocytes % (auto) 0.7 %; Lymphocytes # (auto) 6.72 K/uL (1.2-3.4); Lymphocytes % (auto) 45.8 %; Monocytes # (auto) 0.95 K/uL (0.11-0.59); Monocytes % (auto) 6.5 %; Neutrophils # (auto) 6.76 K/uL (1.40-6.50); Smudge Cells Present
--- NOTE | 2023-05-09 07:19 | Electrocardiogram Report ---
Test Reason : Blood Pressure : / mmHG Vent. Rate : 075 BPM Atrial Rate : 075 BPM P-R Int : 206 ms QRS Dur : 098 ms QT Int : 420 ms P-R-T Axes : 082 071 073 degrees QTc Int : 469 ms Sinus rhythm with Premature atrial complexes Possible Left atrial enlargement Nonspecific ST abnormality Borderline ECG When compared with ECG of 07-MAY-2023 16:32, (unconfirmed) Premature atrial complexes are now Present Confirmed by Dmitri Og ([id number] on 05/09/2023 7:18:50 AM Referred By: REFERRED SELF Confirmed By:Gurpreet Og
[2023-05-09] MEDS ORDERED: LOSARTAN POTASSIUM 25 MG TAB PO SCH (09:00)
[2023-05-09] MEDS: ENOXAPARIN 80 MG/0.8 ML SYR SQ SCH (09:35)
--- NOTE | 2023-05-09 11:47 | Discharge Summary ---
Discharge Summary Date of Service May 09, 2023 Notes For Next Care Provider Medication Changes From Visit Discontinue Eliquis Start Coumadin 5mg po daily Start Lovenox 70mg SQ bid Admission HPI Per Admitting Provider The patient is a 77-year-old male with a past medical history including CLL, prostate cancer, MGUS, coronary disease, tobacco use disorder, COPD and history of pulmonary embolus June 2022. He has been continued on Eliquis during this time, and reports taking the medication as directed. Work-up in the emergency department included laboratories and imaging. Significant laboratories: WBC 22.04, glucose 134, total bilirubin 1.5, troponin 46.6. CT angiography PE protocol showed pulmonary emboli in the left upper lobe and bilateral lower lobes. There were also pulmonary infarcts in the left upper lobe and right lower lobe Changes in the right middle lobe and lingula suggestive of chronic bronchitis Principal Dx & Hospital Course #1 = Principal Diagnosis (1) Pulmonary emboli: Presented with pleuritic chest pain on the left side, no hypoxia, mildly elevated troponin Found to have acute left sided and right lower pulmonary emboli with pulmonary infarct. No pneumonia No fevers or leukocytosis, no sputum production or hemoptysis-was given 1 dose of ceftriaxone and azithromycin in the ER but not continued With a history of PE and on Eliquis with good compliance prior to admission. Found to have left peroneal vein DVT on venous Doppler here Chest pain greatly improved,Not hypoxic, ambulating around the room without any issues Discussed with hematology-started Lovenox 1 mg/kg subcu every 12 hours as a bridge to anticoagulation with Coumadin-started Coumadin 5 Mg p.o. once daily INR 1.0 on day of discharge after 1 dose of coumadin--> Follow INR on Friday 05/11 with results sent to [facility] clinic and PCP We will get him set up with anticoagulation clinic Patient has 2 underlying cancers, CLL, MGUS, and prostate cancer, which make him hypercoagulable and are the likely answer for Eliquis failure-check CT abdomen/pelvis with IV contrast to look for metastases, check SPEP, NAIDA, immunoglobulins as per oncology recommendation-IgG/A/M normal, other tests pending at time of discharge. PSA 3.0 F/u Oncology within 2-3 weeks (2) DVT (deep venous thrombosis): as above (3) Elevated troponin: demand ischemia elevated troponin/CAD/hypertension- troponin level 46.6/35/34 ECG negative for ischemia Echocardiogram with chronic hypokinesis of the basal inferior wall, preserved EF (4) CLL (chronic lymphocytic leukemia): Follows with oncology, WBC count elevated at 22 and now 14 Appreciate oncology consultation (5) MGUS (monoclonal gammopathy of unknown significance): Checking SPEP/NAIDA-pending, immunoglobulins normal f/u Oncology (6) Prostate cancer: Checked CT abdomen/pelvis for metastases--> negative except enlarged prostate with some foci of hyperattenuation PSA 3.0 f/u with Urology as planned in Jun (7) HTN (hypertension): BPs mildly elevated continue losartan (8) Coronary artery disease: Noted in history but patient has not had any stents or NE that he is aware of (9) Tobacco use disorder: History of smoking and COPD (10) Chronic obstructive pulmonary disease: No acute issues Plan Disposition-dc to home, Lovenox teaching given by RN to Discussed care with and daughter at the bedside Discharge Exam Constitutional WD/WN, vitals as above Neck trachea midline, no thyromegaly Respiratory normal respiratory effort Auscultation: no crackles and no wheezes Cardiovascular RRR, no murmur, no edema Chest (Breasts) Chest: normal inspection of chest Gastrointestinal (Abdomen) normal bowel sounds, soft, nontender, no hepatosplenomegaly Musculoskeletal Extremities: extremities normal to inspection; no cyanosis and no clubbing Skin no rashes, warm and dry Neurologic moves all extremities and awake; no focal motor deficits Psychiatric A+Ox3, euthymic affect Lymphatic no lymphedema Updated Medication List Medication Instructions Recorded Confirmed Type losartan 25 mg tablet 25 mg PO DAILY #90 tabs 04/18/22 05/07/23 Rx apixaban 5 mg tablet (Eliquis) 5 mg PO BID #60 tabs 02/24/23 05/07/23 Rx Metamucil 0 mg PO DAILY 05/07/23 05/07/23 History warfarin 5 mg tablet 5 mg PO DAILY@1600 #30 tabs 05/09/23 Rx Hospital Stay Data Consultations 05/07/23 19:25 ED Decision to Admit Stat 05/08/23 09:32 Consult Hematology Routine Diagnostic Imagining Performed 05/07/23 17:31 CT angio chest PE protocol Stat 05/07/23 21:08 US venous doppler LE BI Stat 05/08/23 18:01 CT Abd and Pelvis [CT abd pelvis IV con only] Routine ECHO Pending Results Patient Have Any Pending Studies at Discharge: Yes (SPEP,NAIDA,Free chains) Discharge Instructions Given to Patient (Per Discharging Provider) You were admitted with a blood clot in your left leg and several blood clots in your lungs. Because you were on Eliquis while you developed these clots, you will be switched to taking Coumadin instead for you blood thinner. Because it takes 3-5 days on average to get your PT/INR (Coumadin level, essentially) up to the right range (between 2.0-3.0), you will need to take shots of enoxaparin (Lovenox) twice a day to keep your blood thin in the meantime. Please follow up with the Oncologist-their office will contact you with an appointment within 2-3 weeks. The Anticoagulation Clinic will also be contacting you with your appointment date and time to manage your Coumadin. Please go to the lab and get your blood work drawn to check a PT/INR on Friday 05/11. These results will be sent to your PCP and to the anticoagulation clinic for review and they will tell you when it is ok to stop taking the Lovenox shots. Total Time Total Time Spent Total Time Spent (In Minutes): 40 min Total Time Includes: Examination of the Patient, Discharge Planning, Medication Reconciliation and Communication With Other Providers (Dr. Hairston of Oncology) Coding Level of Care Code 27784 INP/OBS DISCH >30 MIN Diagnoses Pulmonary emboli I26.99 Acute cor pulmonale presence: without acute cor pulmonale Chronicity: acute Pulmonary embolism type: unspecified DVT (deep venous thrombosis) I82.409 Elevated troponin R77.8 CLL (chronic lymphocytic leukemia) C91.90 MGUS (monoclonal gammopathy of unknown significance) D47.2 Prostate cancer C61 HTN (hypertension) I10 Coronary artery disease I25.10 Tobacco use disorder F17.200 Chronic obstructive pulmonary disease J44.9
== END 2023-05-09 13:22 | disposition home or self-care (01) | DRG 299 ==
LOC: ED 16:14 → 2S 20:19 → SUATTDRO 20:19 → 2S 21:29